=== PATIENT | male | born 1965 | race Caucasian/White ===

== ENCOUNTER → 2020-10-07 10:11 | Outpatient (BNVA) | payer BC, SELFPAY | PROVIDERS: PCP Internal Medicine; Visit Provider Hospitalist ==

== ENCOUNTER → 2021-04-08 10:50 | Outpatient (BNVA) | payer BC, SELFPAY | PROVIDERS: PCP Internal Medicine; Visit Provider Hospitalist ==

== ENCOUNTER → 2021-10-06 11:06 | Outpatient (BNVA) | payer BC, SELFPAY | PROVIDERS: PCP Internal Medicine; Visit Provider Hospitalist ==

== ENCOUNTER 2023-04-13 13:27 | Outpatient (AMB) | payer BC, SELFPAY ==
--- NOTE | 2023-04-13 13:33 | MHC.OFFVIS ---
Intake Vital Signs 04/13/23 13:34 Height 5 ft 8 in Weight 219 lb 5.759 oz BMI 33.3 BP 128/70 Blood Pressure Location Lt brachial Position Sitting Pulse 84 Pulse Source Pulse Oximeter Pulse Oximetry (%) 98 Oxygen Delivery Method Room Air Intake Visit Reasons: Obstructive sleep apnea Coding Tech Required: No Allergies tramadol [TRAMADOL] Allergy (Mild, Verified 04/13/23 13:37) NAUSEA & VOMITING HPI HPI Comments History of Present Illness Details The patient is a 57-year-old gentleman known obstructive sleep apnea. He also has a history of depression and mood disorder. He has been using CPAP without any difficulties. The CPAP therapy has been affecting beneficial. He does use it every night. We did request a download from his [employer] company, [employer]. It appears that he initially uses it but then he takes it off around 3:00 a.m. in the morning. He averages around 3 hours and 30 minutes. He was indicated on the fact that he needs to use it longer period therefore, he is going to make more of an effort to do so. When he does use it is AHI is down to 0.1. He does have an auto PAP. Otherwise he doesn't have any respiratory issues. 10/07/2020 the patient is here for pulmonary follow-up visit. Overall he has been doing okay. For the last 5 days he has had some chest congestion. He has also has some fatigue and headaches. [place] a little run down. However he is feeling better now he denies any fevers. He owns want to get tested for COVID-19 but now he is better. The patient has been using his CPAP. The CPAP therapy continues to be affecting beneficial. He has been getting supplies regularly through his [employer] company. He is wondering about getting a new CPAP. The CPAP appears to be functioning appropriately at this time. Therefore will have him come back in 6 months and reassess if he has any issues with CPAP. At that time we can discuss if he needs a new 1. If the patient develops any worsening respiratory symptoms he is to be tested for COVID-19. Can also call the office for further recommendations. 04/08/2021 the patient is here for pulmonary follow-up visit. Since we last spoke the patient had been diagnosed with COVID-19. Apparently back when I saw him he was done to develop symptoms. He did test positive in subsequently started fevers up to 104. He was having a. Ultimately he has recovered and he did get vaccinated afterwards. He been having issues with memory and memory followed as well as depression although his medications of chronic being wean down. Will follow up with the psychiatrist closely regarding those symptoms. I do not believe that those symptoms are due to his CPAP. He continues uses CPAP and is continues to be affecting beneficial. The patient is older than 5 years old. We will have him bring in during the next visit to see if we need stop it out for a new machine. Will have follow-up in 6 months and will discuss that further at that time. If however the machine stops working prior to that or if he develops any worsening respiratory symptoms he is to call our office for an earlier assessment. 10/06/2021 the patient is here for a pulmonary follow-up visit. Overall the patient has been doing well. He recovered fully from COVID-19. In the meantime he continues uses CPAP therapy with good adherence. he does use his CPAP for more than 4 hours a night. The therapy has been affecting beneficial. He is having issues with with his old machine though does not feel like it is working appropriately. Therefore, will request a replacement APAP AirSense 11. 04/13/2023 the patient is here for pulmonary follow-up visit. In regards of the his sleep apnea and he did get a new machine in the CPAP therapy has been affecting beneficial. He does use it for more than 4 hours a night. The patient does not have air view access so therefore have to request a download at this time. He has been having issues with depression this is his biggest issue. Also feels like as a having brain fog. Will have to make sure that he is doing effective CPAP therapy to make sure that that is not interfering with his mental health issues. She will talk to his psychiatrist about further additional therapies at this time. [facility] Medical History (Updated 04/13/23 @ 21:53 by Johnie Steiner MD) Insomnia BRITNI on CPAP Social History (Updated 10/06/21 @ 11:14 by CORRIE Christianson) Patient Tobacco Use Status: Never used Tobacco Review of Systems Const Reports difficulty sleeping and Denies night sweats ENT Denies change in voice, Denies mouth pain, Reports nasal congestion and Reports nasal discharge Card Denies chest pain Resp Denies chest congestion and Denies cough GI Denies abdominal pain Musc Denies no additional complaints Neuro Denies Neuro-related abnormal movements, Reports confusion and Reports memory loss Psych Denies no additional complaints, Reports confusion, Reports depression and Reports memory loss Michael/Lymph Denies easy bleeding and Denies lymphadenopathy Physical Exam Vital Signs: Last Vital Signs Pulse 84 04/13/23 13:34 BP 128/70 04/13/23 13:34 Pulse Ox 98 04/13/23 13:34 Oxygen Delivery Method Room Air 04/13/23 13:34 BMI result Body Mass Index 33.3 Const General: confusion Orientation/consciousness: confusion HEENT General nose exam: Abnormal external nose present and Nasal discharge present Chest Chest palpation & inspection: normal inspection of the chest Resp Auscultation: clear to auscultation bilaterally Cardio Rate: regular rate Rhythm: regular rhythm Heart sounds: S1 normal heart sound present and S2 normal heart sound present GI Palpation (GI): Soft to palpation and nontender Auscultation: normal bowel sounds Skin General skin exam: rashes and/or lesions noted Neuro General: confusion Assessment & Plan Assessment & Plan (1) BRITNI on CPAP: Code(s): G47.33 - Obstructive sleep apnea (adult) (pediatric); Z99.89 - Dependence on other enabling machines and devices (2) Insomnia: Code(s): G47.00 - Insomnia, unspecified Plan Continue APAP therapy. sleep hygiene consider melatonin TCA at bedtime F/U 1 year Coding Level of Care Code Est Pt Level 4 (32144) Diagnoses BRITNI on CPAP G47.33; Z99.89 Insomnia G47.00 Time Spent (min) 17
[2023-04-13 13:34] VITALS: BP 128/70; PULSE 84; O2SAT 98; BMI 33.3
== END 2023-04-13 13:56 | disposition home or self-care (01) ==
PROVIDERS: PCP Internal Medicine; Visit Provider Hospitalist
DX: G47.33 Obstructive sleep apnea (adult) (pediatric) (principal); Z99.89 Dependence on other enabling machines and devices; G47.00 Insomnia, unspecified
CPT/HCPCS: 99214

== ENCOUNTER → 2023-04-13 13:27 | Outpatient (BNVA) | payer BC, SELFPAY | PROVIDERS: PCP Internal Medicine; Visit Provider Hospitalist ==

== ENCOUNTER 2025-07-11 14:52 | Outpatient (AMB) | payer BC, SELFPAY ==
[2025-07-11 15:01] VITALS: BP 130/50; PULSE 120; O2SAT 97; BMI 35.2
--- NOTE | 2025-07-11 15:01 | MHC.OFFVIS ---
Vital Signs 07/11/25 15:01 Height 5 ft 8 in Weight 231 lb 7.766 oz BMI 35.2 BP 130/50 L Blood Pressure Location Lt brachial Position Sitting Pulse 120 H Pulse Source Pulse Oximeter Pulse Oximetry (%) 97 Oxygen Delivery Method Room Air Intake Visit Reasons: Shortness of breath Residential Plumber Required: No Allergies tramadol (TRAMADOL) Allergy (Mild, Verified 07/11/25 15:02) NAUSEA & VOMITING HPI Comments Details: The patient is a 60-year-old gentleman known obstructive sleep apnea. He also has a history of depression and mood disorder. He has been using CPAP without any difficulties. The CPAP therapy has been affecting beneficial. He does use it every night. We did request a download from his [employer] company, [employer]. It appears that he initially uses it but then he takes it off around 3:00 a.m. in the morning. He averages around 3 hours and 30 minutes. He was indicated on the fact that he needs to use it longer period therefore, he is going to make more of an effort to do so. When he does use it is AHI is down to 0.1. He does have an auto PAP. Otherwise he doesn't have any respiratory issues. 10/07/2020 the patient is here for pulmonary follow-up visit. Overall he has been doing okay. For the last 5 days he has had some chest congestion. He has also has some fatigue and headaches. [place] a little run down. However he is feeling better now he denies any fevers. He owns want to get tested for COVID-19 but now he is better. The patient has been using his CPAP. The CPAP therapy continues to be affecting beneficial. He has been getting supplies regularly through his [employer] company. He is wondering about getting a new CPAP. The CPAP appears to be functioning appropriately at this time. Therefore will have him come back in 6 months and reassess if he has any issues with CPAP. At that time we can discuss if he needs a new 1. If the patient develops any worsening respiratory symptoms he is to be tested for COVID-19. Can also call the office for further recommendations. 04/08/2021 the patient is here for pulmonary follow-up visit. Since we last spoke the patient had been diagnosed with COVID-19. Apparently back when I saw him he was done to develop symptoms. He did test positive in subsequently started fevers up to 104. He was having a. Ultimately he has recovered and he did get vaccinated afterwards. He been having issues with memory and memory followed as well as depression although his medications of chronic being wean down. Will follow up with the psychiatrist closely regarding those symptoms. I do not believe that those symptoms are due to his CPAP. He continues uses CPAP and is continues to be affecting beneficial. The patient is older than 5 years old. We will have him bring in during the next visit to see if we need stop it out for a new machine. Will have follow-up in 6 months and will discuss that further at that time. If however the machine stops working prior to that or if he develops any worsening respiratory symptoms he is to call our office for an earlier assessment. 10/06/2021 the patient is here for a pulmonary follow-up visit. Overall the patient has been doing well. He recovered fully from COVID-19. In the meantime he continues uses CPAP therapy with good adherence. he does use his CPAP for more than 4 hours a night. The therapy has been affecting beneficial. He is having issues with with his old machine though does not feel like it is working appropriately. Therefore, will request a replacement APAP AirSense . 04/13/2023 the patient is here for pulmonary follow-up visit. In regards of the his sleep apnea and he did get a new machine in the CPAP therapy has been affecting beneficial. He does use it for more than 4 hours a night. The patient does not have air view access so therefore have to request a download at this time. He has been having issues with depression this is his biggest issue. Also feels like as a having brain fog. Will have to make sure that he is doing effective CPAP therapy to make sure that that is not interfering with his mental health issues. She will talk to his psychiatrist about further additional therapies at this time. 07/11/2025 the patient is here for pulmonary follow-up visit. Overall the patient has been doing okay. He has been using CPAP every night CPAP therapy has been affecting beneficial. He does use it with the nasal mask. The patient is still complaining of brain fog. He is going to follow-up with his doctor regarding that. I will request a download from his current [employer] company to see if we need to adjust his machine. He is complaining of some vivid dreams. Most likely secondary to his medications but need to make sure that is not from inefficient CPAP therapy. From a breathing standpoint the patient is doing good denies any shortness of breath or coughing or any other concerns. From a insomnia standpoint he is still taking the nortriptyline. He has stopped taking Remeron because it was causing him to have worsening vivid dreams. [facility] Medical History (Updated 07/11/25 @ 15:18 by Johnie Steiner MD) Insomnia BRITNI on CPAP Social History Patient Tobacco Use Status: Never used Tobacco Review of Systems Const Reports difficulty sleeping and Denies night sweats ENT Denies change in voice, Denies mouth pain, Reports nasal congestion and Reports nasal discharge Card Denies chest pain Resp Denies chest congestion and Denies cough GI Denies abdominal pain Musc Denies no additional complaints Neuro Denies Neuro-related abnormal movements, Reports confusion and Reports memory loss Psych Denies no additional complaints, Reports confusion, Reports depression and Reports memory loss Michael/Lymph Denies easy bleeding and Denies lymphadenopathy Physical Exam Vital Signs: Last Vital Signs Pulse 120 H 07/11/25 15:01 BP 130/50 L 07/11/25 15:01 Pulse Ox 97 07/11/25 15:01 Oxygen Delivery Method Room Air 07/11/25 15:01 BMI result Body Mass Index 35.2 Const General: confusion Orientation/consciousness: confusion HEENT General nose exam: Abnormal external nose present and Nasal discharge present Chest Chest palpation & inspection: normal inspection of the chest Resp Auscultation: clear to auscultation bilaterally Cardio Rate: regular rate Rhythm: regular rhythm Heart sounds: S1 normal heart sound present and S2 normal heart sound present GI Palpation (GI): Soft to palpation and nontender Auscultation: normal bowel sounds Skin General skin exam: rashes and/or lesions noted Neuro General: confusion Office Procedures Flu Questionnaire Does the patient have a severe egg allergy?: No Does the patient have severe life threatening allergies?: No Does the patient have a fever or illness today?: No Has the patient ever had Guillain-[place] Syndrome?: No Has the patient ever had any past reaction to a flu shot?: No Immunizations Fluarix [id number] (PF) 45 mcg (15 mcg x 3)/0.5 mL IM syringe Performing Provider: Johnie Steiner MD Performing Location: [facility] Administered by: Alta Tamez LPN on 07/11/25 15:29 Dose Route Admin Location Dispensed Lot Number Expiration Date NDC Flight Deck Officer 0.5 mL IM Right Deltoid 0.5 mL [id number] 02/17/26 [id number] [employer] VIS Given Date VIS Provided VIS Publication Date 07/11/25 Single Vaccine 24 Eligibility Eligibility Date Funding Source Not [facility] Eligible 07/11/25 Private Assessment & Plan Assessment & Plan (1) BRITNI on CPAP: Code(s): G47.33 - Obstructive sleep apnea (adult) (pediatric); Z99.89 - Dependence on other enabling machines and devices Category: Medical (2) Insomnia: Code(s): G47.00 - Insomnia, unspecified Category: Medical Qualifiers: Insomnia type: primary Qualified Code(s): F51.01 - Primary insomnia Plan Continue APAP therapy. sleep hygiene TCA at bedtime F/U 1 year Orders: Orders Influenza [id number] Immunization 07/11/25 G47.33 - Obstructive sleep apnea (adult) (pediatric), Z99.89 - Dependence on other enabling machines and devices Coding Level of Care Code Est Pt Level 4 (17939) Diagnoses BRITNI on CPAP G47.33; Z99.89 Primary insomnia F51.01 Insomnia type: primary Time Spent (min) 17
--- OUTSIDE RECORDS SUMMARY | 2025-07-11 15:06 | XMS_ITS | Patient Health Record ---
Author Organization [facility] [address] Address [address] [place] [address] Care Team Providers Care Ux Ui Designer Name Role Phone SALVADOR CARBALLO Primary Care Provider DEMETRIAGARFIELD [phone] Allergies Allergen (clinical drug ingredient) Drug/Non Drug Allergy documented on EMR Reaction Allergy Type Onset Date Status tramadol Tramadol HCl Unknown Drug Allergy Acti ve Results Component Value Reference Range Flag Notes EKG Reviewed date:07/25/2024 12:39:01 PM Interpretation: Performing Lab: Notes/Report: ECGDiastolicBP 78 ECGDiastolicBP 78 ECGHr 84 ECGHr 83 ECGPRInterval 222 ECGPRInterval 228 ECGPWaveAxis 28 ECGPWaveAxis 30 ECGQRSDuration 86 ECGQRSDuration 86 ECGQrsWaveAxis 28 ECGQrsWaveAxis 31 ECGQTcInterval 392 ECGQTcInterval 396 ECGQTInterval 354 ECGQTInterval 352 ECGSystolicBP 142 ECGSystolicBP 142 ECGTWaveAxis 31 ECGTWaveAxis 32 RR_DiastolicBP 0 RR_DiastolicBP 0 RR_MaxRRInterval 0 RR_MaxRRInterval 0 RR_MeanHR 0 RR_MeanHR 0 RR_MeanRRInterval 0 RR_MeanRRInterval 0 RR_MinRRInterval 0 RR_MinRRInterval 0 RR_NumBeats 0 RR_NumBeats 0 RR_NumNormalBeats 0 RR_NumNormalBeats 0 RR_SystolicBP 0 RR_SystolicBP 0 EKG Reviewed date:07/25/2024 12:39:01 PM Interpretation: Performing Lab: Notes/Report: ECGDiastolicBP 78 ECGDiastolicBP 78 ECGHr 84 ECGHr 83 ECGPRInterval 222 ECGPRInterval 228 ECGPWaveAxis 28 ECGPWaveAxis 30 ECGQRSDuration 86 ECGQRSDuration 86 ECGQrsWaveAxis 28 ECGQrsWaveAxis 31 ECGQTcInterval 392 ECGQTcInterval 396 ECGQTInterval 354 ECGQTInterval 352 ECGSystolicBP 142 ECGSystolicBP 142 ECGTWaveAxis 31 ECGTWaveAxis 32 RR_DiastolicBP 0 RR_DiastolicBP 0 RR_MaxRRInterval 0 RR_MaxRRInterval 0 RR_MeanHR 0 RR_MeanHR 0 RR_MeanRRInterval 0 RR_MeanRRInterval 0 RR_MinRRInterval 0 RR_MinRRInterval 0 RR_NumBeats 0 RR_NumBeats 0 RR_NumNormalBeats 0 RR_NumNormalBeats 0 RR_SystolicBP 0 RR_SystolicBP 0 Magnesium-[id number] Reviewed date:08/06/2024 06:01:39 PM Interpretation: Performing Lab:[facility], [address] [place] [address], Phone - [phone], Director - Cj Notes/Report: Magnesium 2.2 1.6-2.3 mg/dL CBC With Differential/Platel et-[id number] Reviewed date:08/06/2024 06:01:47 PM Interpretation: Performing Lab:[facility], [address] [facility], [place], Phone - [phone], Director - Cj Notes/Report: WBC 8.2 3.4-10.8 x10E3/uL RBC 4.74 4.14-5.80 x10E6/uL Hemoglobin 14.5 13.0-17.7 g/dL Hematocrit 44.7 37.5-51.0 % MCV 94 79-97 fL MCH 30.6 26.6-33.0 pg MCHC 32.4 31.5-35.7 g/dL RDW 12.4 11.6-15.4 % Platelets 246 150-450 x10E3/uL Neutrophils 65 Not Estab. % Lymphs 24 Not Estab. % Monocytes 7 Not Estab. % Eos 3 Not Estab. % Basos 1 Not Estab. % Neutrophils (Absolute) 5.4 1.4-7.0 x10E3/uL Lymphs (Absolute) 2.0 0.7-3.1 x10E3/uL Monocytes(Absolute) 0.6 0.1-0.9 x10E3/uL Eos (Absolute) 0.2 0.0-0.4 x10E3/uL Baso (Absolute) 0.1 0.0-0.2 x10E3/uL Immature Granulocytes 0 Not Estab. % Immature Grans (Abs) 0.0 0.0-0.1 x10E3/uL Nortriptyline (Aventyl), Ser um-[id number] Reviewed date:08/06/2024 06:01:35 PM Interpretation: Performing Lab:[facility], [address] [place] [address], Phone - [phone], Director - [facility] Notes/Report: Nortriptyline (Aventyl), Serum 98 50-150 ng/mL Detection Limit = 20 . This test was developed and its performance characteristics determined by [employer]. It has not been cleared or approved by the Food and Drug Administration. [place] (Eskalith(R)), Serum -[id number] Reviewed date:08/06/2024 06:01:12 PM Interpretation: Performing Lab:[facility], [address] [place] [address], Phone - [phone], Director - [facility] Notes/Report: [place] (Eskalith(R)), Serum 0.7 0.5-1.2 mmol/L A concentration of 0.5-0.8 mmol/L is advised for long-term use; concentrations of up to 1.2 mmol/L may be necessary during acute treatment. Detection Limit = 0.1 <0.1 indicates None Detected Maritza Avendano CMP14 Default A hand-written panel/profile was received from your office. In accordance with the [facility] Ambiguous Test Code Policy dated February 2003, we have completed your order by using the closest currently or formerly recognized AMA panel. We have assigned Comprehensive Metabolic Panel (14), Test Code #[id number] to this request. If this is not the testing you wished to receive on this specimen, please contact the [employer] Client Inquiry/Technical Services Department to clarify the test order. We appreciate your business. T4 and TSH-[id number] Reviewed date:08/06/2024 06:01:03 PM Interpretation: Performing Lab:[facility], [address] [place] [address], Phone - [phone], Director - MDJodry Notes/Report: TSH 3.330 0.450-4.500 uIU/mL Thyroxine (T4) 6.1 4.5-12.0 ug/dL Calcitriol(1,25 di-OH Vit D) -[id number] Reviewed date:08/06/2024 06:01:16 PM Interpretation: Performing Lab:[facility] [place], [address] [place] [address], Phone - [phone], Director - MDJodry Notes/Report: Calcitriol(1,25 di-OH Vit D) 38.2 24.8-81.5 pg/mL Comp. Metabolic Panel (14)-[id number] Reviewed date:08/06/2024 06:01:27 PM Interpretation: Performing Lab:[facility] [place], [address] [place] [address], Phone - [phone], Director - MDJodry Notes/Report: Glucose 120 70-99 mg/dL H BUN 15 8-27 mg/dL Creatinine 1.43 0.76-1.27 mg/dL H eGFR 56 >59 mL/min/1.73 L BUN/Creatinine Ratio 10 10-24 Sodium 140 134-144 mmol/L Potassium 4.4 3.5-5.2 mmol/L Chloride 102 96-106 mmol/L Carbon Dioxide, Total 21 20-29 mmol/L Calcium 9.9 8.6-10.2 mg/dL Protein, Total 7.3 6.0-8.5 g/dL Albumin 4.6 3.9-4.9 g/dL Globulin, Total 2.7 1.5-4.5 g/dL Bilirubin, Total 0.2 0.0-1.2 mg/dL Alkaline Phosphatase 55 44-121 IU/L AST (SGOT) 26 0-40 IU/L ALT (SGPT) 41 0-44 IU/L Reason For Referral Reason Dr. Murali Valerio; I44.0 Prolonged NV Interval; R00.2 Heart Palpitations Diagnosis 1 Prolonged NV interva l (I44.0) Diagnosis 2 Heart palpitations ( R00.2) Referral Organization [facility] [address] Referring Provider First Name SALVADOR Referring Provider Last Name MURPHY Referring Provider Speciality Internal M edicine Referred Provider Specialty Cardiology General Notes [facility], (k) [phone] Clinical Notes BrandenEma townsend 09:38:15 AM > referral faxed with amy, Geneva Moreno 03/18/2025 02:57:13 PM > Seen on 12/06/24 Referral Priority Routine Reason Dr. Bliss Diagnosis 1 Heart palpitations ( R00.2) Diagnosis 2 Prolonged NV interva l (I44.0) Referral Organization [facility] [address] Referring Provider First Name GARFIELD Referring Provider Last Name SA[place] Referring Provider Speciality Preventive Medicine Referred Provider Specialty Cardiology General Notes Eugenie Dumas 024 01:46:01 PM > Referral faxed over to Murali Bliss at [facility] Referral Priority Routine Reason [facility] Diagnosis 1 Depressive disorder (F32.A) Diagnosis 2 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 ) Referral Organization [facility] [address] Referring Provider First Name GARFIELD Referring Provider Last Name [facility] [place] [facility] Referred Provider Specialty Psychiatry [facility] General Notes Eugenie Dumas 025 02:56:13 PM > Referral faxed to Dr Elia Galindo as requested per pt Referral Priority Routine Reason [facility] Diagnosis 1 Prolonged NV interva l (I44.0) Referral Organization [facility] [address] Referring Provider First Name GARFIELD Referring Provider Last Name [place] Referring Provider Speciality Preventive Medicine Referred Provider Specialty Cardiology General Notes Eugenie Dumas 025 03:01:04 PM > Referral faxed to Dr Luan Ball as requested per pt. Referral Priority Routine Medications Medication SIG (Take, Route, Frequency, Duration) Notes Start Date End Date Status Creatine Active [place] 3 Fish Oil Act andrew Losartan Potassium-HCTZ 100-12.5 MG Tablet TAKE 1 TABLET BY MOUTH ONCE DAILY Active [place] Carbonate 300 MG Tablet 1/2 tablet every AM and 2 tablets every PM Oral; Duration: 28 days Active Levothyroxine Sodium 25 MCG Tablet TAKE 1 TABLET BY MOUTH DAILY IN THE MORNING ON AN EMPTY STOMACH. Active Nortriptyline HCl 75 MG Capsule 1 capsule Oral Once a day; Duration: 28 days Active Multivitamin Adult A ctive amLODIPine Besylate 5 MG Tablet 1 tablet Orally Once a day; Duration: 30 days Active Mirtazapine 7.5 MG Tablet 2 tablets at b edtime Orally Once a day Active clonazePAM 1 MG Tablet 1 tablet Orally O nce a day Active Immunizations Vaccine Route Administration Date Status Comme nts influenza IM Intramuscular 05/21/2020 Administered influenza IM Intramuscular 06/14/2021 Administered influenza IM Intramuscular 06/30/2022 Administered influenza IM Intramuscular 08/17/2023 Administered Influenza, high dose seasonal IM Intramuscular 07/25/2018 Administered Zoster IM Intramuscular 06/14/2021 Administered Social History Tobacco Use: Social History Observation Description Date Details (start date - stop date) Never Smoker NA - NA Social History Tobacco Use: Social Info Question Answer Notes Tobacco Use/Smoking Are you a nonsmoker Section Notes: Tob: Denies Etoh: Denies Drugs: Denies Tob: Denies Etoh: Denies Drugs: Denies Tob: Denies Etoh: Denies Drugs: Denies Problems Problem Type SNOMED Code ICD Code Onset Dates Problem Status W/U Status Risk Notes Problem Essential hypertensi on (68102875) Essential (primary) hypertension (I10) Active confirmed Problem Prediabetes (200552231) Prediabetes (R73.03) Active confirmed Problem Anxiety (54692350) Anxiety (F41.9) Active confi rmed Problem Memory loss (03119950) Memory lo ss (R41.3) Active confirmed Problem Chronic kidney disea se stage 3A (271045139) Stage 3a chronic kidney disease (N18.31) Active confirmed Problem Palpitations (81927288) Heart palpitations (R00.2) Active confirmed Problem Pure hypercholesterolemia (992770545) Elevated LDL cholesterol level (E78.00) Active confirmed Problem Long-term current us e of drug therapy (927467144) [place] use (Z79.899) Active confirmed Problem First degree atrioventricular block (258803760) First degree AV block (I44.0) Active confirmed Problem Derealization (98292721) 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) Active confirmed Problem Severe major depression, single episode, without psychotic features (48351705) MDD (major depressive disorder), severe (F32.2) Active confirmed Vital Signs Heart Rate 79 /min 04/24/2025 Temperature 97.8 degrees Fahrenheit 10/08/2024 Oximetry 98 % 04/24/2025 Blood pressure diastolic 78 mm Hg 04/24/2025 Height 67 in 04/24/2025 Blood pressure systolic 132 mm Hg 04/24/2025 Weight 230.9 lbs 04/24/2025 BMI 36.16 kg/m2 04/24/2025 Encounters Encounter Location Date Provider Diagnosis [facility] [address] [facility] [address] [facility] [address] [place] [address] 07/24/2024 GARFIELD DEMETRIA Heart palpitations R00.2 ; Prolonged NV interval I44.0 ; [place] use Z79.899 and Encounter for therapeutic drug level monitoring Z51.81 [facility] [address] [facility] [address] [facility] [address] [place] [address] 08/01/2024 GARFIELD DEMETRIA Heart palpitations R00.2 ; Prolonged NV interval I44.0 ; [place] use Z79.899 and Encounter for therapeutic drug level monitoring Z51.81 [facility] [address] [facility] [address] [place] [address] 08/23/2024 GARFIELD DEMETRIA Heart palpitations R00.2 ; First degree AV block I44.0 ; Derealization F48.1 and MDD (major depressive disorder), severe F32.2 [facility] [address] [facility] [address] [facility] [address] [place] [address] 10/08/2024 GARFIELD PABLOHAM Respiratory syncytia l virus (RSV) as cause of acute bronchiolitis J21.0 and Acute cough R05.1 [facility] [address] [facility] [address] [address] 11/21/2024 GARFIELD DEMETRIA Heart palpitations R00.2 ; First degree AV block I44.0 ; Derealization F48.1 and MDD (major depressive disorder), severe F32.2 [facility] [address] [facility] [address] [address] 01/30/2025 GARFIELD DEMETRIA Heart palpitations R00.2 ; First degree AV block I44.0 ; Essential (primary) hypertension I10 ; Stage 3a chronic kidney disease N18.31 ; Elevated LDL cholesterol level E78.00 ; Prediabetes R73.03 ; Derealization F48.1 and MDD (major depressive disorder), severe F32.2 [facility] [address] [facility] [address] [facility] [address] [place] [address] 04/24/2025 GARFIELD DEMETRIA Heart palpitations R00.2 ; First degree AV block I44.0 ; Essential (primary) hypertension I10 ; Stage 3a chronic kidney disease N18.31 ; Elevated LDL cholesterol level E78.00 ; Prediabetes R73.03 ; Derealization F48.1 and MDD (major depressive disorder), severe F32.2 [facility] [address] [facility] [address] [place] [address] 07/23/2024 TALAL CARBALLO [facility] [address] [facility] [address] [place] [address] 07/24/2024 GARFIELD AUGUSTIN [facility] [address] [facility] [address] [place] [address] 07/25/2024 TALAL CARBALLO [facility] [address] [facility] [address] [place] [address] 08/23/2024 GARFIELD PABLOHAM [facility] [address] [facility] [address] [place] [address] 10/08/2024 GARFIELD SA[place]NE [facility] [address] [facility] [address] [place] [address] 10/11/2024 GARFIELD DEMETRIA [facility] [address] [place] [address] 12/09/2024 GARFIELD DEMETRIA [facility] [address] [place] [address] 03/07/2025 TALAL CARBALLO [facility] [address] [place] [address] 03/11/2025 TALAL CARBALLO [facility] [address] [facility] [address] [place] [address] 03/12/2025 TALAL CARBALLO [facility] [address] [facility] [address] [place] [address] 04/24/2025 TALAL CARBALLO Assessments Encounter Date Diagnosis (ICD Code) Assessment Notes Treatment Notes Treatment Clinical Notes Section Notes 07/24/2024 Heart palpitations (ICD-10 - R00.2) Saqib is a 59-year-old male with a PMH of HTN, prediabetes, hypothyroidism, bipolar, anxiety, treatment resistant depression that presents for evaluation of heart palpitations on and off x5 days. Reports sensation of irregular heart beat, followed by pause, after which his heart beat resumes a seemingly regular rhythm. Not exacerbated with exertion. Denies additional cardiac symptoms. No recent travel/illness. No medication changes. On exam the patient appears comfortable, no visible increased work of breathing. HR mildly tachy to 102. Auscultation reveals regular rate/rhythm, no murmurs/rubs/or gallops. EKG obtained in office reveals prolonged NV interval to 222, no ST/T wave changes -- (EKG from 01/2021 reveals NSR with normal NV interval at 192). Current differential diagnosis includes medication-induced AV block (patient currently taking nortriptyline and lithium) v. Thyroid dysfunction v. electrolyte derangement. Plan to proceed with labs including CBC, CMP, magnesium, TSH with reflex T4, serum lithium, serum amitriptyline for continued evaluation. Placed Holter monitor x 7 days with goal of capturing irregular heart rate/beats. Patient understands to keep log of cardiac events. Will fax EKG and office note to patient's psychiatrist Dr. Socorro Joseph for continued evaluation. The patient is urged to contact her within the next day to schedule follow up to assess current medications. Will also refer to cardiology given change in EKG. Patient requesting referral to Murali Bliss [place] with [facility] Strict ED protocol reviewed, patient understands to call 911/seek immediate medical attention should he develop symptoms including but not limited to chest pain, shortness of breath, difficulty breathing, unusual nausea/vomiting, confusion, syncope, etc. All questions answered to the patient's satisfaction. Patient demonstrates understanding of diagnosis and treatments discussed. Follow-up in 1 week, sooner should any questions/concerns arise. Case discussed with collaborating physician Josh Carballo who has reviewed the assessment/plan. Chart, medications, labs, and vital signs reviewed. Dictation completed with the use of [employer] voice recognition software, prone to medical misidentifications and grammatical errors. All errors are unintentional. Although the practitioner does try to identify and correct errors, some may be present. Please do not hesitate to contact the practitioner for clarification. Total time was 60 minutes spent with >50% on coordination of care and patient education. 07/24/2024 Prolonged NV interval (ICD-10 - I44.0) Saqib is a 59-year-old male with a PMH of HTN, prediabetes, hypothyroidism, bipolar, anxiety, treatment resistant depression that presents for evaluation of heart palpitations on and off x5 days. Reports sensation of irregular heart beat, followed by pause, after which his heart beat resumes a seemingly regular rhythm. Not exacerbated with exertion. Denies additional cardiac symptoms. No recent travel/illness. No medication changes. On exam the patient appears comfortable, no visible increased work of breathing. HR mildly tachy to 102. Auscultation reveals regular rate/rhythm, no murmurs/rubs/or gallops. EKG obtained in office reveals prolonged NV interval to 222, no ST/T wave changes -- (EKG from 01/2021 reveals NSR with normal NV interval at 192). Current differential diagnosis includes medication-induced AV block (patient currently taking nortriptyline and lithium) v. Thyroid dysfunction v. electrolyte derangement. Plan to proceed with labs including CBC, CMP, magnesium, TSH with reflex T4, serum lithium, serum amitriptyline for continued evaluation. Placed Holter monitor x 7 days with goal of capturing irregular heart rate/beats. Patient understands to keep log of cardiac events. Will fax EKG and office note to patient's psychiatrist Dr. Socorro Joseph for continued evaluation. The patient is urged to contact her within the next day to schedule follow up to assess current medications. Will also refer to cardiology given change in EKG. Patient requesting referral to Murali Bliss MD with [facility] Strict ED protocol reviewed, patient understands to call 911/seek immediate medical attention should he develop symptoms including but not limited to chest pain, shortness of breath, difficulty breathing, unusual nausea/vomiting, confusion, syncope, etc. All questions answered to the patient's satisfaction. Patient demonstrates understanding of diagnosis and treatments discussed. Follow-up in 1 week, sooner should any questions/concerns arise. Case discussed with collaborating physician Josh Carballo who has reviewed the assessment/plan. Chart, medications, labs, and vital signs reviewed. Dictation completed with the use of [employer] voice recognition software, prone to medical misidentifications and grammatical errors. All errors are unintentional. Although the practitioner does try to identify and correct errors, some may be present. Please do not hesitate to contact the practitioner for clarification. Total time was 60 minutes spent with >50% on coordination of care and patient education. 08/01/2024 Heart palpitations (ICD-10 - R00.2) Saqib is a 59-year-old male with a PMH of HTN, prediabetes, hypothyroidism, bipolar, anxiety, treatment resistant depression that presents for follow-up evaluation on heart palpitations. Patient initially presented to the office 07/24/24 at which time he reported sensation of irregular heart beat, followed by pause, followed by return of regular heart rhythm x 5 days. On medication review, 2 medications were identified that may be contributing to the patient's symptoms (nortriptyline and lithium) which are prescribed by the patient's psychiatrist. An EKG was performed and revealed a prolonged NV interval to 222 (up from 192 01/2021), no ST/T wave changes. Holter monitor was placed, and comprehensive labs were ordered. Office note and EKG were faxed to the patient's psychiatrist Dr. Joseph, who instructed the patient to decrease his dose of nortriptyline from 125 mg to 100 mg 07/31/2024. Referral to cardiology placed. The patient returns today reporting with persistent sensation of irregular heartbeat. Physical exam WNL. Cardiac auscultation reveals regular rate/rhythm - no murmurs, rubs, or gallops. Holter monitor was removed for rhythm analysis. Labs drawn 07/29/2024 including CBC, CMP, magnesium, TSH, vitamin D, and lithium levels within normal limits. Nortriptyline serum level not yet available for my review. The patient is encouraged to continue monitoring his symptoms. Recommending limiting strenuous activity and prioritizing water intake. Plan to review Holter report once available. Will continue to work in coordination with the patient's psychiatrist to ensure quality care. Patient is encouraged to contact Dr. Bliss's office to establish care this week. Strict ED protocol reviewed, patient understands to call 911/seek immediate medical attention should he develop symptoms including but not limited to chest pain, shortness of breath, difficulty breathing, unusual nausea/vomiting, confusion, syncope, etc. All questions answered to the patient's satisfaction. Patient demonstrates understanding of diagnosis and treatments discussed. Follow-up in 4 weeks, sooner should any questions/concerns arise. Case discussed with collaborating physician Josh Carballo who has reviewed the assessment/plan. Chart, medications, labs, and vital signs reviewed. Dictation completed with the use of [employer] voice recognition software, prone to medical misidentifications and grammatical errors. All errors are unintentional. Although the practitioner does try to identify and correct errors, some may be present. Please do not hesitate to contact the practitioner for clarification. 08/23/2024 Heart palpitations (ICD-10 - R00.2) Saqib is a 59-year-old male with a PMH of HTN, prediabetes, hypothyroidism, anxiety, treatment resistant depression that presents for follow-up evaluation on heart palpitations. Patient initially presented to the office 07/24/24 at which time he reported sensation of irregular heart beat, followed by pause, followed by return of regular heart rhythm x 5 days. On medication review, 2 medications were identified that may be contributing to the patient's symptoms (nortriptyline and lithium) which are prescribed by the patient's psychiatrist. An EKG was performed and revealed a prolonged NV interval to 222 (up from 192 01/2021), no ST/T wave changes. Comprehensive labs and serum amitriptyline/lithiu m levels WNL. Holter monitor was placed x1 week. Holter monitor report reviewed. Predominant rhythm: NSR. There are also incidences of first-degree AV block, PACs, and PVCs. Patient reports since his dose of nortriptyline was decreased from 125 to 100 mg the frequency of the heart palpitations has decreased significantly. Continues to occasionally have sensation of skipped beats. Denies additional cardiac symptoms. Physical exam without acute findings. Cardiac auscultation reveals regular rate/rhythm. No audible murmurs, rubs, or gallops. Patient requesting referral to Dr. Ball, referral placed. Will also send most recent office note, Holter report, and EKG with referral. Patient is encouraged to continue monitoring his symptoms. Strict ED protocol reviewed, patient understands to call 911/seek immediate medical attention should he develop symptoms including but not limited to chest pain, shortness of breath, difficulty breathing, unusual nausea/vomiting, confusion, syncope, etc. #MDD/derealization: Patient with history of treatment refractory depression. Follows with psychiatrist Dr. Joseph once every 6 weeks. Continues to take nortriptyline 100 mg daily. Additionally reports lithium regimen has been changed due to kidney dysfunction and recent CMP. Currently taking 150 mg every morning and 600 mg every evening. Patient has tried and failed many adjunctive treatment options for his symptoms of depression/derealiza tion including electroshock therapy and IV ketamine infusions. Seeking additional evaluation, requesting referral to Dr. Galindo, referral provided. All questions answered to the patient's satisfaction. Patient demonstrates understanding of diagnosis and treatments discussed. Follow-up in 8 weeks, sooner should any questions/concerns arise. Case discussed with collaborating physician Josh Carballo who has reviewed the assessment/plan. Chart, medications, labs, and vital signs reviewed. Dictation completed with the use of [employer] voice recognition software, prone to medical misidentifications and grammatical errors. All errors are unintentional. Although the practitioner does try to identify and correct errors, some may be present. Please do not hesitate to contact the practitioner for clarification. Total time was 60 minutes spent with >50% on coordination of care and patient education. 08/23/2024 First degree AV block (ICD-10 - I44.0) Saqib is a 59-year-old male with a PMH of HTN, prediabetes, hypothyroidism, anxiety, treatment resistant depression that presents for follow-up evaluation on heart palpitations. Patient initially presented to the office 07/24/24 at which time he reported sensation of irregular heart beat, followed by pause, followed by return of regular heart rhythm x 5 days. On medication review, 2 medications were identified that may be contributing to the patient's symptoms (nortriptyline and lithium) which are prescribed by the patient's psychiatrist. An EKG was performed and revealed a prolonged NV interval to 222 (up from 192 01/2021), no ST/T wave changes. Comprehensive labs and serum amitriptyline/lithiu m levels WNL. Holter monitor was placed x1 week. Holter monitor report reviewed. Predominant rhythm: NSR. There are also incidences of first-degree AV block, PACs, and PVCs. Patient reports since his dose of nortriptyline was decreased from 125 to 100 mg the frequency of the heart palpitations has decreased significantly. Continues to occasionally have sensation of skipped beats. Denies additional cardiac symptoms. Physical exam without acute findings. Cardiac auscultation reveals regular rate/rhythm. No audible murmurs, rubs, or gallops. Patient requesting referral to Dr. Ball, referral placed. Will also send most recent office note, Holter report, and EKG with referral. Patient is encouraged to continue monitoring his symptoms. Strict ED protocol reviewed, patient understands to call 911/seek immediate medical attention should he develop symptoms including but not limited to chest pain, shortness of breath, difficulty breathing, unusual nausea/vomiting, confusion, syncope, etc. #MDD/derealization: Patient with history of treatment refractory depression. Follows with psychiatrist Dr. Joseph once every 6 weeks. Continues to take nortriptyline 100 mg daily. Additionally reports lithium regimen has been changed due to kidney dysfunction and recent CMP. Currently taking 150 mg every morning and 600 mg every evening. Patient has tried and failed many adjunctive treatment options for his symptoms of depression/derealiza tion including electroshock therapy and IV ketamine infusions. Seeking additional evaluation, requesting referral to Dr. Galindo, referral provided. All questions answered to the patient's satisfaction. Patient demonstrates understanding of diagnosis and treatments discussed. Follow-up in 8 weeks, sooner should any questions/concerns arise. Case discussed with collaborating physician Josh Carballo who has reviewed the assessment/plan. Chart, medications, labs, and vital signs reviewed. Dictation completed with the use of [employer] voice recognition software, prone to medical misidentifications and grammatical errors. All errors are unintentional. Although the practitioner does try to identify and correct errors, some may be present. Please do not hesitate to contact the practitioner for clarification. Total time was 60 minutes spent with >50% on coordination of care and patient education. 10/08/2024 Acute cough (ICD-10 - R05.1) Saqib is a 59-year-old male with a PMH of HTN, prediabetes, hypothyroidism, bipolar, anxiety, treatment resistant depression that presents for evaluation of cold-like symptoms including productive cough, nasal congestion, and mild SOB x 2 days. On presentation, patient is vitally stable. Exam reveals coarse breath sounds heard in the bilateral upper lobes, cleared with coughing. Exam otherwise WNL. He does cough infrequently throughout the encounter. Viral swab positive for RSV. Discussed symptomatic treatment with the patient. Patient is encouraged to rest, hydrate and use OTC treatment such as Tylenol or decongestants as needed. Given mild SOB will prescribe 5-day prednisone burst. He is encouraged to follow-up with should symptoms not improve despite treatment. He understands to seek immediate medical attention should he develop any difficulty breathing. All questions answered to the patient's satisfaction. Patient demonstrates understanding of diagnosis and treatments discussed. Follow-up at next scheduled appointment, sooner should any questions/concerns arise. Case discussed with collaborating physician Josh Carballo who has reviewed the assessment/plan. Chart, medications, labs, and vital signs reviewed. Dictation completed with the use of [employer] voice recognition software, prone to medical misidentifications and grammatical errors. All errors are unintentional. Although the practitioner does try to identify and correct errors, some may be present. Please do not hesitate to contact the practitioner for clarification. 10/08/2024 Respiratory syncytial virus (RSV) as cause of acute bronchiolitis (ICD-10 - J21.0) Saqib is a 59-year-old male with a PMH of HTN, prediabetes, hypothyroidism, bipolar, anxiety, treatment resistant depression that presents for evaluation of cold-like symptoms including productive cough, nasal congestion, and mild SOB x 2 days. On presentation, patient is vitally stable. Exam reveals coarse breath sounds heard in the bilateral upper lobes, cleared with coughing. Exam otherwise WNL. He does cough infrequently throughout the encounter. Viral swab positive for RSV. Discussed symptomatic treatment with the patient. Patient is encouraged to rest, hydrate and use OTC treatment such as Tylenol or decongestants as needed. Given mild SOB will prescribe 5-day prednisone burst. He is encouraged to follow-up with should symptoms not improve despite treatment. He understands to seek immediate medical attention should he develop any difficulty breathing. All questions answered to the patient's satisfaction. Patient demonstrates understanding of diagnosis and treatments discussed. Follow-up at next scheduled appointment, sooner should any questions/concerns arise. Case discussed with collaborating physician Josh Carballo who has reviewed the assessment/plan. Chart, medications, labs, and vital signs reviewed. Dictation completed with the use of [employer] voice recognition software, prone to medical misidentifications and grammatical errors. All errors are unintentional. Although the practitioner does try to identify and correct errors, some may be present. Please do not hesitate to contact the practitioner for clarification. 11/21/2024 Heart palpitations (ICD-10 - R00.2) Saqib is a 59-year-old male with a PMH of HTN, prediabetes, hypothyroidism, anxiety, treatment resistant depression that presents for follow-up. #Heart palpitations: Patient previously being followed for evaluation of irregular heartbeat. EKG with evidence of prolonged NV interval. Holter monitor with evidence of first-degree AV block, PACs, PVCs. Due to these findings, patient's dose of nortriptyline was decreased -currently taking 100 mg with decreased frequency of heart palpitations. Patient continues to deny additional cardiac symptoms. He is encouraged to continue monitoring his symptoms. He understands to seek immediate medical attention should he develop symptoms including but not limited to chest pain, persistent heart palpitation, difficulty breathing, confusion, weakness, etc. #MDD/derealization: Patient with history of treatment refractory depression - continues to experience symptoms of derealization, major depression, and brain fog. Denies SI/HI, panic attacks, jeevan, or AVH. Follows with psychiatrist Dr. Joseph once every 6 weeks. Currently on regimen of nortriptyline 100 mg daily and lithium 150 mg every morning grams every evening. Has tried/failed adjunct of treatment values including electroshock therapy and IV ketamine infusions. He states he has difficulties with his memory however can recall details about previous depressive treatments from 10+ years ago. He is A/O x 3. Mental status is consistent with his baseline. Discussed that from a primary care perspective, the goal would be to rule out underlying medical etiologies for his symptoms. Most recent labs including CBC, CMP, thyroid function MND, lithium, nortriptyline levels WNL. Per review of [facility] of the brain without contrast 03/12/2020 without evidence of acute/subacute infarction, hemorrhage, or mass. There was however a few scattered foci of T2 signal in the cerebral white matter likely related to minor chronic microvascular ischemic damage. It also appears the patient was referred to neurology in 2021 at which time it was decided by Chad Quezada MD to not offer an appointment due to the patient's young age and many medical/psychiatric issues that can impact memory. Could consider additional imaging of the brain, patient does not feel this is necessary at this time. Recommending he follow up with Dr. Joseph as scheduled 11/22/24. Given the lack of symptom improvement on his current regimen, he is encouraged to discuss options for alternatives with that provider. Also provided information for [email or web address] and [email or web address] should the patient like to establish with therapist or alternative psychiatric provider. He is also encouraged to call the office of Dr. Galindo to f/u on the previous referral. All questions answered to the patient's satisfaction. Patient demonstrates understanding of diagnosis and treatments discussed. Follow-up in 8 weeks, sooner should any questions/concerns arise. Case discussed with collaborating physician Josh Carballo who has reviewed the assessment/plan. Chart, medications, labs, and vital signs reviewed. Dictation completed with the use of [employer] voice recognition software, prone to medical misidentifications and grammatical errors. All errors are unintentional. Although the practitioner does try to identify and correct errors, some may be present. Please do not hesitate to contact the practitioner for clarification. Total time was 60 minutes spent with >50% on coordination of care and patient education. 01/30/2025 Heart palpitations (ICD-10 - R00.2) Saqib is a 59-year-old male with a PMH of treatment resistant MDD, HTN, first-degree AV block, HLD, prediabetes, hypothyroidism, CKD that presents for follow-up appointment. #Heart palpitations: Patient previously being followed for evaluation of irregular heartbeat. EKG with evidence of prolonged NV interval. Holter monitor with evidence of first-degree AV block, PACs, PVCs. Seen by Selina Rivero MD with [facility] cardiology 12/06/2024 at which time baseline labs were ordered which were unremarkable. Scheduling for echocardiogram pending. Repeat Holter monitor x 3 days was placed, awaiting report for review. He is encouraged to continue monitoring symptoms. ED protocol reviewed. Plan to follow-up with cardiology in 6 months a scheduled. #HTN: BP in office 126/74. Continue losartan/HCTZ 100/12.5 mg daily and amlodipine 5 mg daily. #CKD: Labs drawn 12/21/2024 revealed BUN/creatinine 19/1.42, consistent with patient's baseline. #HLD: Lipid panel drawn 12/21/2024 reveals mildly elevated total cholesterol at 116, otherwise WNL. Patient is educated that lifestyle changes including increasing physical activity and dietary changes can aid in decreasing cholesterol levels. Recommending a diet rich in fruits, vegetables, fiber, and healthy fats such as those found in fish and nuts. Limit sugar, processed foods, fried foods, alcohol, red meat, and unhealthy fats such as trans fats and saturated fat. #Prediabetes: A1c 12/21/2024 prediabetic at 5.7%. He understands the importance of above lifestyle recommendations. #Hypothyroidism: TSH drawn 12/21/2024 WNL at 2.49. Continue levothyroxine 25 mcg once daily. #MDD/derealization: Patient with history of treatment refractory depression - continues to experience symptoms of derealization, major depression, and brain fog. Denies SI/HI, panic attacks, jeevan, or AVH. Follows with psychiatrist Dr. Joseph once every 6 weeks. Currently on regimen of nortriptyline 75 mg daily, mirtazapine 7.5 mg QD, lithium 150 mg QAM and 600mg QHS. Has tried/failed adjunct of treatment values including electroshock therapy and IV ketamine infusions. A/O x 3 - mental status is consistent with his baseline. He is encouraged to follow-up with psychiatry 01/31/2025 as scheduled. Discussed possibility of [employer] testing, he will review this option with the psychiatrist at time of appointment tomorrow. All questions answered to the patient's satisfaction. Patient demonstrates understanding of diagnosis and treatments discussed. Follow-up in 8 weeks, sooner should any questions/concerns arise. Case discussed with collaborating physician Josh Carballo who has reviewed the assessment/plan. Chart, medications, labs, and vital signs reviewed. Dictation completed with the use of [employer] voice recognition software, prone to medical misidentifications and grammatical errors. All errors are unintentional. Although the practitioner does try to identify and correct errors, some may be present. Please do not hesitate to contact the practitioner for clarification. Total time was 30 minutes spent with >50% on coordination of care and patient education. 01/30/2025 First degree AV block (ICD-10 - I44.0) Saqib is a 59-year-old male with a PMH of treatment resistant MDD, HTN, first-degree AV block, HLD, prediabetes, hypothyroidism, CKD that presents for follow-up appointment. #Heart palpitations: Patient previously being followed for evaluation of irregular heartbeat. EKG with evidence of prolonged NV interval. Holter monitor with evidence of first-degree AV block, PACs, PVCs. Seen by Selina Rivero MD with [facility] cardiology 12/06/2024 at which time baseline labs were ordered which were unremarkable. Scheduling for echocardiogram pending. Repeat Holter monitor x 3 days was placed, awaiting report for review. He is encouraged to continue monitoring symptoms. ED protocol reviewed. Plan to follow-up with cardiology in 6 months a scheduled. #HTN: BP in office 126/74. Continue losartan/HCTZ 100/12.5 mg daily and amlodipine 5 mg daily. #CKD: Labs drawn 12/21/2024 revealed BUN/creatinine 19/1.42, consistent with patient's baseline. #HLD: Lipid panel drawn 12/21/2024 reveals mildly elevated total cholesterol at 116, otherwise WNL. Patient is educated that lifestyle changes including increasing physical activity and dietary changes can aid in decreasing cholesterol levels. Recommending a diet rich in fruits, vegetables, fiber, and healthy fats such as those found in fish and nuts. Limit sugar, processed foods, fried foods, alcohol, red meat, and unhealthy fats such as trans fats and saturated fat. #Prediabetes: A1c 12/21/2024 prediabetic at 5.7%. He understands the importance of above lifestyle recommendations. #Hypothyroidism: TSH drawn 12/21/2024 WNL at 2.49. Continue levothyroxine 25 mcg once daily. #MDD/derealization: Patient with history of treatment refractory depression - continues to experience symptoms of derealization, major depression, and brain fog. Denies SI/HI, panic attacks, jeevan, or AVH. Follows with psychiatrist Dr. Joseph once every 6 weeks. Currently on regimen of nortriptyline 75 mg daily, mirtazapine 7.5 mg QD, lithium 150 mg QAM and 600mg QHS. Has tried/failed adjunct of treatment values including electroshock therapy and IV ketamine infusions. A/O x 3 - mental status is consistent with his baseline. He is encouraged to follow-up with psychiatry 01/31/2025 as scheduled. Discussed possibility of [employer] testing, he will review this option with the psychiatrist at time of appointment tomorrow. All questions answered to the patient's satisfaction. Patient demonstrates understanding of diagnosis and treatments discussed. Follow-up in 8 weeks, sooner should any questions/concerns arise. Case discussed with collaborating physician Josh Carballo who has reviewed the assessment/plan. Chart, medications, labs, and vital signs reviewed. Dictation completed with the use of [employer] voice recognition software, prone to medical misidentifications and grammatical errors. All errors are unintentional. Although the practitioner does try to identify and correct errors, some may be present. Please do not hesitate to contact the practitioner for clarification. Total time was 30 minutes spent with >50% on coordination of care and patient education. 04/24/2025 Heart palpitations (ICD-10 - R00.2) Saqib is a 59-year-old male with a PMH of treatment resistant MDD, HTN, first-degree AV block, HLD, prediabetes, hypothyroidism, CKD that presents for follow-up appointment. #Heart palpitations: Patient previously being followed for evaluation of irregular heartbeat. EKG with evidence of prolonged NV interval. Holter monitor with evidence of first-degree AV block, PACs, PVCs. Seen by Selina Rivero MD with [facility] cardiology 12/06/2024 at which time baseline labs were ordered which were unremarkable. Repeat Holter monitor x 3 days was placed and the patient and echo was ordered. He is encouraged to continue monitoring symptoms. ED protocol reviewed. Plan to follow-up with cardiology in May as scheduled. #HTN: BP in office 132/78. Continue losartan/HCTZ 100/12.5 mg daily and amlodipine 5 mg daily. #CKD: Labs drawn 12/21/2024 revealed BUN/creatinine 19/1.42, consistent with patient's baseline. #HLD: Lipid panel drawn 12/21/2024 reveals mildly elevated total cholesterol at 116, otherwise WNL. Patient is encouraged to continue to maintain lifestyle changes and fish oil supplement. Plan to recheck lipid panel at time of physical. #Prediabetes: A1c 12/21/2024 prediabetic at 5.7%. He understands the importance of above lifestyle recommendations. #Hypothyroidism: Continue levothyroxine 25 mcg once daily. #MDD/derealization: Patient with history of treatment refractory depression - continues to experience symptoms of derealization, major depression, and brain fog., Follows with psychiatrist Dr. Joseph once every 6 weeks. Currently on regimen of nortriptyline 75 mg daily, mirtazapine 7.5 mg QD, lithium 150 mg QAM and 600mg QHS. Has tried/failed adjunct of treatment values including electroshock therapy and IV ketamine infusions. A/O x 3 - mental status is consistent with his baseline. He is encouraged to follow-up with psychiatry 25 as scheduled. All questions answered to the patient's satisfaction. Patient demonstrates understanding of diagnosis and treatments discussed. Follow-up in 8 weeks, sooner should any questions/concerns arise. Case discussed with collaborating physician Josh Carballo who has reviewed the assessment/plan. Chart, medications, labs, and vital signs reviewed. Dictation completed with the use of [employer] voice recognition software, prone to medical misidentifications and grammatical errors. All errors are unintentional. Although the practitioner does try to identify and correct errors, some may be present. Please do not hesitate to contact the practitioner for clarification. Total time was 30 minutes spent with >50% on coordination of care and patient education. 04/24/2025 First degree AV block (ICD-10 - I44.0) Saqib is a 59-year-old male with a PMH of treatment resistant MDD, HTN, first-degree AV block, HLD, prediabetes, hypothyroidism, CKD that presents for follow-up appointment. #Heart palpitations: Patient previously being followed for evaluation of irregular heartbeat. EKG with evidence of prolonged NV interval. Holter monitor with evidence of first-degree AV block, PACs, PVCs. Seen by Selina Rivero MD with [facility] cardiology 12/06/2024 at which time baseline labs were ordered which were unremarkable. Repeat Holter monitor x 3 days was placed and the patient and echo was ordered. He is encouraged to continue monitoring symptoms. ED protocol reviewed. Plan to follow-up with cardiology in May as scheduled. #HTN: BP in office 132/78. Continue losartan/HCTZ 100/12.5 mg daily and amlodipine 5 mg daily. #CKD: Labs drawn 12/21/2024 revealed BUN/creatinine 19/1.42, consistent with patient's baseline. #HLD: Lipid panel drawn 12/21/2024 reveals mildly elevated total cholesterol at 116, otherwise WNL. Patient is encouraged to continue to maintain lifestyle changes and fish oil supplement. Plan to recheck lipid panel at time of physical. #Prediabetes: A1c 12/21/2024 prediabetic at 5.7%. He understands the importance of above lifestyle recommendations. #Hypothyroidism: Continue levothyroxine 25 mcg once daily. #MDD/derealization: Patient with history of treatment refractory depression - continues to experience symptoms of derealization, major depression, and brain fog., Follows with psychiatrist Dr. Joseph once every 6 weeks. Currently on regimen of nortriptyline 75 mg daily, mirtazapine 7.5 mg QD, lithium 150 mg QAM and 600mg QHS. Has tried/failed adjunct of treatment values including electroshock therapy and IV ketamine infusions. A/O x 3 - mental status is consistent with his baseline. He is encouraged to follow-up with psychiatry as scheduled. All questions answered to the patient's satisfaction. Patient demonstrates understanding of diagnosis and treatments discussed. Follow-up in 8 weeks, sooner should any questions/concerns arise. Case discussed with collaborating physician Josh Carballo who has reviewed the assessment/plan. Chart, medications, labs, and vital signs reviewed. Dictation completed with the use of [employer] voice recognition software, prone to medical misidentifications and grammatical errors. All errors are unintentional. Although the practitioner does try to identify and correct errors, some may be present. Please do not hesitate to contact the practitioner for clarification. Total time was 30 minutes spent with >50% on coordination of care and patient education. 04/24/2025 Essential (primary) hypertension (ICD-10 - I10) Saqib is a 59-year-old male with a PMH of treatment resistant MDD, HTN, first-degree AV block, HLD, prediabetes, hypothyroidism, CKD that presents for follow-up appointment. #Heart palpitations: Patient previously being followed for evaluation of irregular heartbeat. EKG with evidence of prolonged NV interval. Holter monitor with evidence of first-degree AV block, PACs, PVCs. Seen by Selina Rivero MD with [facility] cardiology 12/06/2024 at which time baseline labs were ordered which were unremarkable. Repeat Holter monitor x 3 days was placed and the patient and echo was ordered. He is encouraged to continue monitoring symptoms. ED protocol reviewed. Plan to follow-up with cardiology in May as scheduled. #HTN: BP in office 132/78. Continue losartan/HCTZ 100/12.5 mg daily and amlodipine 5 mg daily. #CKD: Labs drawn 12/21/2024 revealed BUN/creatinine 19/1.42, consistent with patient's baseline. #HLD: Lipid panel drawn 12/21/2024 reveals mildly elevated total cholesterol at 116, otherwise WNL. Patient is encouraged to continue to maintain lifestyle changes and fish oil supplement. Plan to recheck lipid panel at time of physical. #Prediabetes: A1c 12/21/2024 prediabetic at 5.7%. He understands the importance of above lifestyle recommendations. #Hypothyroidism: Continue levothyroxine 25 mcg once daily. #MDD/derealization: Patient with history of treatment refractory depression - continues to experience symptoms of derealization, major depression, and brain fog., Follows with psychiatrist Dr. Joseph once every 6 weeks. Currently on regimen of nortriptyline 75 mg daily, mirtazapine 7.5 mg QD, lithium 150 mg QAM and 600mg QHS. Has tried/failed adjunct of treatment values including electroshock therapy and IV ketamine infusions. A/O x 3 - mental status is consistent with his baseline. He is encouraged to follow-up with psychiatry [id number] as scheduled. All questions answered to the patient's satisfaction. Patient demonstrates understanding of diagnosis and treatments discussed. Follow-up in 8 weeks, sooner should any questions/concerns arise. Case discussed with collaborating physician Josh Carballo who has reviewed the assessment/plan. Chart, medications, labs, and vital signs reviewed. Dictation completed with the use of [employer] voice recognition software, prone to medical misidentifications and grammatical errors. All errors are unintentional. Although the practitioner does try to identify and correct errors, some may be present. Please do not hesitate to contact the practitioner for clarification. Total time was 30 minutes spent with >50% on coordination of care and patient education. 11/21/2024 First degree AV block (ICD-10 - I44.0) Saqib is a 59-year-old male with a PMH of HTN, prediabetes, hypothyroidism, anxiety, treatment resistant depression that presents for follow-up. #Heart palpitations: Patient previously being followed for evaluation of irregular heartbeat. EKG with evidence of prolonged NV interval. Holter monitor with evidence of first-degree AV block, PACs, PVCs. Due to these findings, patient's dose of nortriptyline was decreased -currently taking 100 mg with decreased frequency of heart palpitations. Patient continues to deny additional cardiac symptoms. He is encouraged to continue monitoring his symptoms. He understands to seek immediate medical attention should he develop symptoms including but not limited to chest pain, persistent heart palpitation, difficulty breathing, confusion, weakness, etc. #MDD/derealization: Patient with history of treatment refractory depression - continues to experience symptoms of derealization, major depression, and brain fog. Denies SI/HI, panic attacks, jeevan, or AVH. Follows with psychiatrist Dr. Joseph once every 6 weeks. Currently on regimen of nortriptyline 100 mg daily and lithium 150 mg every morning grams every evening. Has tried/failed adjunct of treatment values including electroshock therapy and IV ketamine infusions. He states he has difficulties with his memory however can recall details about previous depressive treatments from 10+ years ago. He is A/O x 3. Mental status is consistent with his baseline. Discussed that from a primary care perspective, the goal would be to rule out underlying medical etiologies for his symptoms. Most recent labs including CBC, CMP, thyroid function MND, lithium, nortriptyline levels WNL. Per review of [facility] MRI of the brain without contrast 03/12/2020 without evidence of acute/subacute infarction, hemorrhage, or mass. There was however a few scattered foci of T2 signal in the cerebral white matter likely related to minor chronic microvascular ischemic damage. It also appears the patient was referred to neurology in 2021 at which time it was decided by Chad Quezada MD to not offer an appointment due to the patient's young age and many medical/psychiatric issues that can impact memory. Could consider additional imaging of the brain, patient does not feel this is necessary at this time. Recommending he follow up with Dr. Joseph as scheduled 11/22/24. Given the lack of symptom improvement on his current regimen, he is encouraged to discuss options for alternatives with that provider. Also provided information for [email or web address] and [email or web address] should the patient like to establish with therapist or alternative psychiatric provider. He is also encouraged to call the office of Dr. Galindo to f/u on the previous referral. All questions answered to the patient's satisfaction. Patient demonstrates understanding of diagnosis and treatments discussed. Follow-up in 8 weeks, sooner should any questions/concerns arise. Case discussed with collaborating physician Josh Carballo who has reviewed the assessment/plan. Chart, medications, labs, and vital signs reviewed. Dictation completed with the use of [employer] voice recognition software, prone to medical misidentifications and grammatical errors. All errors are unintentional. Although the practitioner does try to identify and correct errors, some may be present. Please do not hesitate to contact the practitioner for clarification. Total time was 60 minutes spent with >50% on coordination of care and patient education. 01/30/2025 Essential (primary) hypertension (ICD-10 - I10) Saqib is a 59-year-old male with a PMH of treatment resistant MDD, HTN, first-degree AV block, HLD, prediabetes, hypothyroidism, CKD that presents for follow-up appointment. #Heart palpitations: Patient previously being followed for evaluation of irregular heartbeat. EKG with evidence of prolonged NV interval. Holter monitor with evidence of first-degree AV block, PACs, PVCs. Seen by Selina Rivero MD with [facility] cardiology 12/06/2024 at which time baseline labs were ordered which were unremarkable. Scheduling for echocardiogram pending. Repeat Holter monitor x 3 days was placed, awaiting report for review. He is encouraged to continue monitoring symptoms. ED protocol reviewed. Plan to follow-up with cardiology in 6 months a scheduled. #HTN: BP in office 126/74. Continue losartan/HCTZ 100/12.5 mg daily and amlodipine 5 mg daily. #CKD: Labs drawn 12/21/2024 revealed BUN/creatinine 19/1.42, consistent with patient's baseline. #HLD: Lipid panel drawn 12/21/2024 reveals mildly elevated total cholesterol at 116, otherwise WNL. Patient is educated that lifestyle changes including increasing physical activity and dietary changes can aid in decreasing cholesterol levels. Recommending a diet rich in fruits, vegetables, fiber, and healthy fats such as those found in fish and nuts. Limit sugar, processed foods, fried foods, alcohol, red meat, and unhealthy fats such as trans fats and saturated fat. #Prediabetes: A1c 12/21/2024 prediabetic at 5.7%. He understands the importance of above lifestyle recommendations. #Hypothyroidism: TSH drawn 12/21/2024 WNL at 2.49. Continue levothyroxine 25 mcg once daily. #MDD/derealization: Patient with history of treatment refractory depression - continues to experience symptoms of derealization, major depression, and brain fog. Denies SI/HI, panic attacks, jeevan, or AVH. Follows with psychiatrist Dr. Joseph once every 6 weeks. Currently on regimen of nortriptyline 75 mg daily, mirtazapine 7.5 mg QD, lithium 150 mg QAM and 600mg QHS. Has tried/failed adjunct of treatment values including electroshock therapy and IV ketamine infusions. A/O x 3 - mental status is consistent with his baseline. He is encouraged to follow-up with psychiatry 01/31/2025 as scheduled. Discussed possibility of [employer] testing, he will review this option with the psychiatrist at time of appointment tomorrow. All questions answered to the patient's satisfaction. Patient demonstrates understanding of diagnosis and treatments discussed. Follow-up in 8 weeks, sooner should any questions/concerns arise. Case discussed with collaborating physician Josh Carballo who has reviewed the assessment/plan. Chart, medications, labs, and vital signs reviewed. Dictation completed with the use of [employer] voice recognition software, prone to medical misidentifications and grammatical errors. All errors are unintentional. Although the practitioner does try to identify and correct errors, some may be present. Please do not hesitate to contact the practitioner for clarification. Total time was 30 minutes spent with >50% on coordination of care and patient education. 08/01/2024 Prolonged NV interval (ICD-10 - I44.0) Saqib is a 59-year-old male with a PMH of HTN, prediabetes, hypothyroidism, bipolar, anxiety, treatment resistant depression that presents for follow-up evaluation on heart palpitations. Patient initially presented to the office 07/24/24 at which time he reported sensation of irregular heart beat, followed by pause, followed by return of regular heart rhythm x 5 days. On medication review, 2 medications were identified that may be contributing to the patient's symptoms (nortriptyline and lithium) which are prescribed by the patient's psychiatrist. An EKG was performed and revealed a prolonged NV interval to 222 (up from 192 01/2021), no ST/T wave changes. Holter monitor was placed, and comprehensive labs were ordered. Office note and EKG were faxed to the patient's psychiatrist Dr. Joseph, who instructed the patient to decrease his dose of nortriptyline from 125 mg to 100 mg 07/31/2024. Referral to cardiology placed. The patient returns today reporting with persistent sensation of irregular heartbeat. Physical exam WNL. Cardiac auscultation reveals regular rate/rhythm - no murmurs, rubs, or gallops. Holter monitor was removed for rhythm analysis. Labs drawn 07/29/2024 including CBC, CMP, magnesium, TSH, vitamin D, and lithium levels within normal limits. Nortriptyline serum level not yet available for my review. The patient is encouraged to continue monitoring his symptoms. Recommending limiting strenuous activity and prioritizing water intake. Plan to review Holter report once available. Will continue to work in coordination with the patient's psychiatrist to ensure quality care. Patient is encouraged to contact Dr. Bliss's office to establish care this week. Strict ED protocol reviewed, patient understands to call 911/seek immediate medical attention should he develop symptoms including but not limited to chest pain, shortness of breath, difficulty breathing, unusual nausea/vomiting, confusion, syncope, etc. All questions answered to the patient's satisfaction. Patient demonstrates understanding of diagnosis and treatments discussed. Follow-up in 4 weeks, sooner should any questions/concerns arise. Case discussed with collaborating physician Josh Carballo who has reviewed the assessment/plan. Chart, medications, labs, and vital signs reviewed. Dictation completed with the use of [employer] voice recognition software, prone to medical misidentifications and grammatical errors. All errors are unintentional. Although the practitioner does try to identify and correct errors, some may be present. Please do not hesitate to contact the practitioner for clarification. 08/23/2024 Derealization (ICD-10 - F48.1) Saqib is a 59-year-old male with a PMH of HTN, prediabetes, hypothyroidism, anxiety, treatment resistant depression that presents for follow-up evaluation on heart palpitations. Patient initially presented to the office 07/24/24 at which time he reported sensation of irregular heart beat, followed by pause, followed by return of regular heart rhythm x 5 days. On medication review, 2 medications were identified that may be contributing to the patient's symptoms (nortriptyline and lithium) which are prescribed by the patient's psychiatrist. An EKG was performed and revealed a prolonged NV interval to 222 (up from 192 01/2021), no ST/T wave changes. Comprehensive labs and serum amitriptyline/lithiu m levels WNL. Holter monitor was placed x1 week. Holter monitor report reviewed. Predominant rhythm: NSR. There are also incidences of first-degree AV block, PACs, and PVCs. Patient reports since his dose of nortriptyline was decreased from 125 to 100 mg the frequency of the heart palpitations has decreased significantly. Continues to occasionally have sensation of skipped beats. Denies additional cardiac symptoms. Physical exam without acute findings. Cardiac auscultation reveals regular rate/rhythm. No audible murmurs, rubs, or gallops. Patient requesting referral to Dr. Ball, referral placed. Will also send most recent office note, Holter report, and EKG with referral. Patient is encouraged to continue monitoring his symptoms. Strict ED protocol reviewed, patient understands to call 911/seek immediate medical attention should he develop symptoms including but not limited to chest pain, shortness of breath, difficulty breathing, unusual nausea/vomiting, confusion, syncope, etc. #MDD/derealization: Patient with history of treatment refractory depression. Follows with psychiatrist Dr. Joseph once every 6 weeks. Continues to take nortriptyline 100 mg daily. Additionally reports lithium regimen has been changed due to kidney dysfunction and recent CMP. Currently taking 150 mg every morning and 600 mg every evening. Patient has tried and failed many adjunctive treatment options for his symptoms of depression/derealiza tion including electroshock therapy and IV ketamine infusions. Seeking additional evaluation, requesting referral to Dr. Galindo, referral provided. All questions answered to the patient's satisfaction. Patient demonstrates understanding of diagnosis and treatments discussed. Follow-up in 8 weeks, sooner should any questions/concerns arise. Case discussed with collaborating physician Josh Carballo who has reviewed the assessment/plan. Chart, medications, labs, and vital signs reviewed. Dictation completed with the use of [employer] voice recognition software, prone to medical misidentifications and grammatical errors. All errors are unintentional. Although the practitioner does try to identify and correct errors, some may be present. Please do not hesitate to contact the practitioner for clarification. Total time was 60 minutes spent with >50% on coordination of care and patient education. 07/24/2024 [place] use (ICD-10 - Z79.899) Saqib is a 59-year-old male with a PMH of HTN, prediabetes, hypothyroidism, bipolar, anxiety, treatment resistant depression that presents for evaluation of heart palpitations on and off x5 days. Reports sensation of irregular heart beat, followed by pause, after which his heart beat resumes a seemingly regular rhythm. Not exacerbated with exertion. Denies additional cardiac symptoms. No recent travel/illness. No medication changes. On exam the patient appears comfortable, no visible increased work of breathing. HR mildly tachy to 102. Auscultation reveals regular rate/rhythm, no murmurs/rubs/or gallops. EKG obtained in office reveals prolonged NV interval to 222, no ST/T wave changes -- (EKG from 01/2021 reveals NSR with normal NV interval at 192). Current differential diagnosis includes medication-induced AV block (patient currently taking nortriptyline and lithium) v. Thyroid dysfunction v. electrolyte derangement. Plan to proceed with labs including CBC, CMP, magnesium, TSH with reflex T4, serum lithium, serum amitriptyline for continued evaluation. Placed Holter monitor x 7 days with goal of capturing irregular heart rate/beats. Patient understands to keep log of cardiac events. Will fax EKG and office note to patient's psychiatrist Dr. Socorro Joseph for continued evaluation. The patient is urged to contact her within the next day to schedule follow up to assess current medications. Will also refer to cardiology given change in EKG. Patient requesting referral to Murali Bl[place] with [facility] Strict ED protocol reviewed, patient understands to call 911/seek immediate medical attention should he develop symptoms including but not limited to chest pain, shortness of breath, difficulty breathing, unusual nausea/vomiting, confusion, syncope, etc. All questions answered to the patient's satisfaction. Patient demonstrates understanding of diagnosis and treatments discussed. Follow-up in 1 week, sooner should any questions/concerns arise. Case discussed with collaborating physician Josh Carballo who has reviewed the assessment/plan. Chart, medications, labs, and vital signs reviewed. Dictation completed with the use of Dragon voice recognition software, prone to medical misidentifications and grammatical errors. All errors are unintentional. Although the practitioner does try to identify and correct errors, some may be present. Please do not hesitate to contact the practitioner for clarification. Total time was 60 minutes spent with >50% on coordination of care and patient education. 07/24/2024 Encounter for therapeutic drug level monitoring (ICD-10 - Z51.81) Saqib is a 59-year-old male with a PMH of HTN, prediabetes, hypothyroidism, bipolar, anxiety, treatment resistant depression that presents for evaluation of heart palpitations on and off x5 days. Reports sensation of irregular heart beat, followed by pause, after which his heart beat resumes a seemingly regular rhythm. Not exacerbated with exertion. Denies additional cardiac symptoms. No recent travel/illness. No medication changes. On exam the patient appears comfortable, no visible increased work of breathing. HR mildly tachy to 102. Auscultation reveals regular rate/rhythm, no murmurs/rubs/or gallops. EKG obtained in office reveals prolonged NV interval to 222, no ST/T wave changes -- (EKG from 01/2021 reveals NSR with normal NV interval at 192). Current differential diagnosis includes medication-induced AV block (patient currently taking nortriptyline and lithium) v. Thyroid dysfunction v. electrolyte derangement. Plan to proceed with labs including CBC, CMP, magnesium, TSH with reflex T4, serum lithium, serum amitriptyline for continued evaluation. Placed Holter monitor x 7 days with goal of capturing irregular heart rate/beats. Patient understands to keep log of cardiac events. Will fax EKG and office note to patient's psychiatrist Dr. Socorro Joseph for continued evaluation. The patient is urged to contact her within the next day to schedule follow up to assess current medications. Will also refer to cardiology given change in EKG. Patient requesting referral to Murali Bliss MD with [facility] Strict ED protocol reviewed, patient understands to call 911/seek immediate medical attention should he develop symptoms including but not limited to chest pain, shortness of breath, difficulty breathing, unusual nausea/vomiting, confusion, syncope, etc. All questions answered to the patient's satisfaction. Patient demonstrates understanding of diagnosis and treatments discussed. Follow-up in 1 week, sooner should any questions/concerns arise. Case discussed with collaborating physician Josh Carballo who has reviewed the assessment/plan. Chart, medications, labs, and vital signs reviewed. Dictation completed with the use of [employer] voice recognition software, prone to medical misidentifications and grammatical errors. All errors are unintentional. Although the practitioner does try to identify and correct errors, some may be present. Please do not hesitate to contact the practitioner for clarification. Total time was 60 minutes spent with >50% on coordination of care and patient education. 08/23/2024 MDD (major depressive disorder), severe (ICD-10 - F32.2) Saqib is a 59-year-old male with a PMH of HTN, prediabetes, hypothyroidism, anxiety, treatment resistant depression that presents for follow-up evaluation on heart palpitations. Patient initially presented to the office 07/24/24 at which time he reported sensation of irregular heart beat, followed by pause, followed by return of regular heart rhythm x 5 days. On medication review, 2 medications were identified that may be contributing to the patient's symptoms (nortriptyline and lithium) which are prescribed by the patient's psychiatrist. An EKG was performed and revealed a prolonged NV interval to 222 (up from 192 01/2021), no ST/T wave changes. Comprehensive labs and serum amitriptyline/lithiu m levels WNL. Holter monitor was placed x1 week. Holter monitor report reviewed. Predominant rhythm: NSR. There are also incidences of first-degree AV block, PACs, and PVCs. Patient reports since his dose of nortriptyline was decreased from 125 to 100 mg the frequency of the heart palpitations has decreased significantly. Continues to occasionally have sensation of skipped beats. Denies additional cardiac symptoms. Physical exam without acute findings. Cardiac auscultation reveals regular rate/rhythm. No audible murmurs, rubs, or gallops. Patient requesting referral to Dr. Ball, referral placed. Will also send most recent office note, Holter report, and EKG with referral. Patient is encouraged to continue monitoring his symptoms. Strict ED protocol reviewed, patient understands to call 911/seek immediate medical attention should he develop symptoms including but not limited to chest pain, shortness of breath, difficulty breathing, unusual nausea/vomiting, confusion, syncope, etc. #MDD/derealization: Patient with history of treatment refractory depression. Follows with psychiatrist Dr. Joseph once every 6 weeks. Continues to take nortriptyline 100 mg daily. Additionally reports lithium regimen has been changed due to kidney dysfunction and recent CMP. Currently taking 150 mg every morning and 600 mg every evening. Patient has tried and failed many adjunctive treatment options for his symptoms of depression/derealiza tion including electroshock therapy and IV ketamine infusions. Seeking additional evaluation, requesting referral to Dr. Galindo, referral provided. All questions answered to the patient's satisfaction. Patient demonstrates understanding of diagnosis and treatments discussed. Follow-up in 8 weeks, sooner should any questions/concerns arise. Case discussed with collaborating physician Josh Carballo who has reviewed the assessment/plan. Chart, medications, labs, and vital signs reviewed. Dictation completed with the use of [employer] voice recognition software, prone to medical misidentifications and grammatical errors. All errors are unintentional. Although the practitioner does try to identify and correct errors, some may be present. Please do not hesitate to contact the practitioner for clarification. Total time was 60 minutes spent with >50% on coordination of care and patient education. 08/01/2024 [place] use (ICD-10 - Z79.899) Saqib is a 59-year-old male with a PMH of HTN, prediabetes, hypothyroidism, bipolar, anxiety, treatment resistant depression that presents for follow-up evaluation on heart palpitations. Patient initially presented to the office 07/24/24 at which time he reported sensation of irregular heart beat, followed by pause, followed by return of regular heart rhythm x 5 days. On medication review, 2 medications were identified that may be contributing to the patient's symptoms (nortriptyline and lithium) which are prescribed by the patient's psychiatrist. An EKG was performed and revealed a prolonged NV interval to 222 (up from 192 01/2021), no ST/T wave changes. Holter monitor was placed, and comprehensive labs were ordered. Office note and EKG were faxed to the patient's psychiatrist Dr. Joseph, who instructed the patient to decrease his dose of nortriptyline from 125 mg to 100 mg 07/31/2024. Referral to cardiology placed. The patient returns today reporting with persistent sensation of irregular heartbeat. Physical exam WNL. Cardiac auscultation reveals regular rate/rhythm - no murmurs, rubs, or gallops. Holter monitor was removed for rhythm analysis. Labs drawn 07/29/2024 including CBC, CMP, magnesium, TSH, vitamin D, and lithium levels within normal limits. Nortriptyline serum level not yet available for my review. The patient is encouraged to continue monitoring his symptoms. Recommending limiting strenuous activity and prioritizing water intake. Plan to review Holter report once available. Will continue to work in coordination with the patient's psychiatrist to ensure quality care. Patient is encouraged to contact Dr. Bliss's office to establish care this week. Strict ED protocol reviewed, patient understands to call 911/seek immediate medical attention should he develop symptoms including but not limited to chest pain, shortness of breath, difficulty breathing, unusual nausea/vomiting, confusion, syncope, etc. All questions answered to the patient's satisfaction. Patient demonstrates understanding of diagnosis and treatments discussed. Follow-up in 4 weeks, sooner should any questions/concerns arise. Case discussed with collaborating physician Josh Carballo who has reviewed the assessment/plan. Chart, medications, labs, and vital signs reviewed. Dictation completed with the use of [employer] voice recognition software, prone to medical misidentifications and grammatical errors. All errors are unintentional. Although the practitioner does try to identify and correct errors, some may be present. Please do not hesitate to contact the practitioner for clarification. 01/30/2025 Stage 3a chronic kidney disease (ICD-10 - N18.31) Saqib is a 59-year-old male with a PMH of treatment resistant MDD, HTN, first-degree AV block, HLD, prediabetes, hypothyroidism, CKD that presents for follow-up appointment. #Heart palpitations: Patient previously being followed for evaluation of irregular heartbeat. EKG with evidence of prolonged NV interval. Holter monitor with evidence of first-degree AV block, PACs, PVCs. Seen by Selina Rivero MD with [facility] cardiology 12/06/2024 at which time baseline labs were ordered which were unremarkable. Scheduling for echocardiogram pending. Repeat Holter monitor x 3 days was placed, awaiting report for review. He is encouraged to continue monitoring symptoms. ED protocol reviewed. Plan to follow-up with cardiology in 6 months a scheduled. #HTN: BP in office 126/74. Continue losartan/HCTZ 100/12.5 mg daily and amlodipine 5 mg daily. #CKD: Labs drawn 12/21/2024 revealed BUN/creatinine 19/1.42, consistent with patient's baseline. #HLD: Lipid panel drawn 12/21/2024 reveals mildly elevated total cholesterol at 116, otherwise WNL. Patient is educated that lifestyle changes including increasing physical activity and dietary changes can aid in decreasing cholesterol levels. Recommending a diet rich in fruits, vegetables, fiber, and healthy fats such as those found in fish and nuts. Limit sugar, processed foods, fried foods, alcohol, red meat, and unhealthy fats such as trans fats and saturated fat. #Prediabetes: A1c 12/21/2024 prediabetic at 5.7%. He understands the importance of above lifestyle recommendations. #Hypothyroidism: TSH drawn 12/21/2024 WNL at 2.49. Continue levothyroxine 25 mcg once daily. #MDD/derealization: Patient with history of treatment refractory depression - continues to experience symptoms of derealization, major depression, and brain fog. Denies SI/HI, panic attacks, jeevan, or AVH. Follows with psychiatrist Dr. Joseph once every 6 weeks. Currently on regimen of nortriptyline 75 mg daily, mirtazapine 7.5 mg QD, lithium 150 mg QAM and 600mg QHS. Has tried/failed adjunct of treatment values including electroshock therapy and IV ketamine infusions. A/O x 3 - mental status is consistent with his baseline. He is encouraged to follow-up with psychiatry 01/31/2025 as scheduled. Discussed possibility of Gene[employer] testing, he will review this option with the psychiatrist at time of appointment tomorrow. All questions answered to the patient's satisfaction. Patient demonstrates understanding of diagnosis and treatments discussed. Follow-up in 8 weeks, sooner should any questions/concerns arise. Case discussed with collaborating physician Josh Carballo who has reviewed the assessment/plan. Chart, medications, labs, and vital signs reviewed. Dictation completed with the use of [employer] voice recognition software, prone to medical misidentifications and grammatical errors. All errors are unintentional. Although the practitioner does try to identify and correct errors, some may be present. Please do not hesitate to contact the practitioner for clarification. Total time was 30 minutes spent with >50% on coordination of care and patient education. 11/21/2024 Derealization (ICD-10 - F48.1) Saqib is a 59-year-old male with a PMH of HTN, prediabetes, hypothyroidism, anxiety, treatment resistant depression that presents for follow-up. #Heart palpitations: Patient previously being followed for evaluation of irregular heartbeat. EKG with evidence of prolonged NV interval. Holter monitor with evidence of first-degree AV block, PACs, PVCs. Due to these findings, patient's dose of nortriptyline was decreased -currently taking 100 mg with decreased frequency of heart palpitations. Patient continues to deny additional cardiac symptoms. He is encouraged to continue monitoring his symptoms. He understands to seek immediate medical attention should he develop symptoms including but not limited to chest pain, persistent heart palpitation, difficulty breathing, confusion, weakness, etc. #MDD/derealization: Patient with history of treatment refractory depression - continues to experience symptoms of derealization, major depression, and brain fog. Denies SI/HI, panic attacks, jeevan, or AVH. Follows with psychiatrist Dr. Joseph once every 6 weeks. Currently on regimen of nortriptyline 100 mg daily and lithium 150 mg every morning grams every evening. Has tried/failed adjunct of treatment values including electroshock therapy and IV ketamine infusions. He states he has difficulties with his memory however can recall details about previous depressive treatments from 10+ years ago. He is A/O x 3. Mental status is consistent with his baseline. Discussed that from a primary care perspective, the goal would be to rule out underlying medical etiologies for his symptoms. Most recent labs including CBC, CMP, thyroid function MND, lithium, nortriptyline levels WNL. Per review of [facility] MRI of the brain without contrast 03/12/2020 without evidence of acute/subacute infarction, hemorrhage, or mass. There was however a few scattered foci of T2 signal in the cerebral white matter likely related to minor chronic microvascular ischemic damage. It also appears the patient was referred to neurology in 2021 at which time it was decided by Chad Quezada MD to not offer an appointment due to the patient's young age and many medical/psychiatric issues that can impact memory. Could consider additional imaging of the brain, patient does not feel this is necessary at this time. Recommending he follow up with Dr. Joseph as scheduled 11/22/24. Given the lack of symptom improvement on his current regimen, he is encouraged to discuss options for alternatives with that provider. Also provided information for [email or web address] and [email or web address] should the patient like to establish with therapist or alternative psychiatric provider. He is also encouraged to call the office of Dr. Galindo to f/u on the previous referral. All questions answered to the patient's satisfaction. Patient demonstrates understanding of diagnosis and treatments discussed. Follow-up in 8 weeks, sooner should any questions/concerns arise. Case discussed with collaborating physician Josh Carballo who has reviewed the assessment/plan. Chart, medications, labs, and vital signs reviewed. Dictation completed with the use of [employer] voice recognition software, prone to medical misidentifications and grammatical errors. All errors are unintentional. Although the practitioner does try to identify and correct errors, some may be present. Please do not hesitate to contact the practitioner for clarification. Total time was 60 minutes spent with >50% on coordination of care and patient education. 04/24/2025 Stage 3a chronic kidney disease (ICD-10 - N18.31) Saqib is a 59-year-old male with a PMH of treatment resistant MDD, HTN, first-degree AV block, HLD, prediabetes, hypothyroidism, CKD that presents for follow-up appointment. #Heart palpitations: Patient previously being followed for evaluation of irregular heartbeat. EKG with evidence of prolonged NV interval. Holter monitor with evidence of first-degree AV block, PACs, PVCs. Seen by Selina Rivero MD with [facility] cardiology 12/06/2024 at which time baseline labs were ordered which were unremarkable. Repeat Holter monitor x 3 days was placed and the patient and echo was ordered. He is encouraged to continue monitoring symptoms. ED protocol reviewed. Plan to follow-up with cardiology in May as scheduled. #HTN: BP in office 132/78. Continue losartan/HCTZ 100/12.5 mg daily and amlodipine 5 mg daily. #CKD: Labs drawn 12/21/2024 revealed BUN/creatinine 19/1.42, consistent with patient's baseline. #HLD: Lipid panel drawn 12/21/2024 reveals mildly elevated total cholesterol at 116, otherwise WNL. Patient is encouraged to continue to maintain lifestyle changes and fish oil supplement. Plan to recheck lipid panel at time of physical. #Prediabetes: A1c 12/21/2024 prediabetic at 5.7%. He understands the importance of above lifestyle recommendations. #Hypothyroidism: Continue levothyroxine 25 mcg once daily. #MDD/derealization: Patient with history of treatment refractory depression - continues to experience symptoms of derealization, major depression, and brain fog., Follows with psychiatrist Dr. Joseph once every 6 weeks. Currently on regimen of nortriptyline 75 mg daily, mirtazapine 7.5 mg QD, lithium 150 mg QAM and 600mg QHS. Has tried/failed adjunct of treatment values including electroshock therapy and IV ketamine infusions. A/O x 3 - mental status is consistent with his baseline. He is encouraged to follow-up with psychiatry [id number] as scheduled. All questions answered to the patient's satisfaction. Patient demonstrates understanding of diagnosis and treatments discussed. Follow-up in 8 weeks, sooner should any questions/concerns arise. Case discussed with collaborating physician Josh Carballo who has reviewed the assessment/plan. Chart, medications, labs, and vital signs reviewed. Dictation completed with the use of [employer] voice recognition software, prone to medical misidentifications and grammatical errors. All errors are unintentional. Although the practitioner does try to identify and correct errors, some may be present. Please do not hesitate to contact the practitioner for clarification. Total time was 30 minutes spent with >50% on coordination of care and patient education. 11/21/2024 MDD (major depressive disorder), severe (ICD-10 - F32.2) Saqib is a 59-year-old male with a PMH of HTN, prediabetes, hypothyroidism, anxiety, treatment resistant depression that presents for follow-up. #Heart palpitations: Patient previously being followed for evaluation of irregular heartbeat. EKG with evidence of prolonged NV interval. Holter monitor with evidence of first-degree AV block, PACs, PVCs. Due to these findings, patient's dose of nortriptyline was decreased -currently taking 100 mg with decreased frequency of heart palpitations. Patient continues to deny additional cardiac symptoms. He is encouraged to continue monitoring his symptoms. He understands to seek immediate medical attention should he develop symptoms including but not limited to chest pain, persistent heart palpitation, difficulty breathing, confusion, weakness, etc. #MDD/derealization: Patient with history of treatment refractory depression - continues to experience symptoms of derealization, major depression, and brain fog. Denies SI/HI, panic attacks, jeevan, or AVH. Follows with psychiatrist Dr. Joseph once every 6 weeks. Currently on regimen of nortriptyline 100 mg daily and lithium 150 mg every morning grams every evening. Has tried/failed adjunct of treatment values including electroshock therapy and IV ketamine infusions. He states he has difficulties with his memory however can recall details about previous depressive treatments from 10+ years ago. He is A/O x 3. Mental status is consistent with his baseline. Discussed that from a primary care perspective, the goal would be to rule out underlying medical etiologies for his symptoms. Most recent labs including CBC, CMP, thyroid function MND, lithium, nortriptyline levels WNL. Per review of [facility] MRI of the brain without contrast 03/12/2020 without evidence of acute/subacute infarction, hemorrhage, or mass. There was however a few scattered foci of T2 signal in the cerebral white matter likely related to minor chronic microvascular ischemic damage. It also appears the patient was referred to neurology in 2021 at which time it was decided by Chad Quezada MD to not offer an appointment due to the patient's young age and many medical/psychiatric issues that can impact memory. Could consider additional imaging of the brain, patient does not feel this is necessary at this time. Recommending he follow up with Dr. Joseph as scheduled 11/22/24. Given the lack of symptom improvement on his current regimen, he is encouraged to discuss options for alternatives with that provider. Also provided information for [email or web address] and [email or web address] should the patient like to establish with therapist or alternative psychiatric provider. He is also encouraged to call the office of Dr. Galindo to f/u on the previous referral. All questions answered to the patient's satisfaction. Patient demonstrates understanding of diagnosis and treatments discussed. Follow-up in 8 weeks, sooner should any questions/concerns arise. Case discussed with collaborating physician Josh Carballo who has reviewed the assessment/plan. Chart, medications, labs, and vital signs reviewed. Dictation completed with the use of [employer] voice recognition software, prone to medical misidentifications and grammatical errors. All errors are unintentional. Although the practitioner does try to identify and correct errors, some may be present. Please do not hesitate to contact the practitioner for clarification. Total time was 60 minutes spent with >50% on coordination of care and patient education. 04/24/2025 Elevated LDL cholesterol level (ICD-10 - E78.00) Saqib is a 59-year-old male with a PMH of treatment resistant MDD, HTN, first-degree AV block, HLD, prediabetes, hypothyroidism, CKD that presents for follow-up appointment. #Heart palpitations: Patient previously being followed for evaluation of irregular heartbeat. EKG with evidence of prolonged NV interval. Holter monitor with evidence of first-degree AV block, PACs, PVCs. Seen by Selina Rivero MD with [facility] cardiology 12/06/2024 at which time baseline labs were ordered which were unremarkable. Repeat Holter monitor x 3 days was placed and the patient and echo was ordered. He is encouraged to continue monitoring symptoms. ED protocol reviewed. Plan to follow-up with cardiology in May as scheduled. #HTN: BP in office 132/78. Continue losartan/HCTZ 100/12.5 mg daily and amlodipine 5 mg daily. #CKD: Labs drawn 12/21/2024 revealed BUN/creatinine 19/1.42, consistent with patient's baseline. #HLD: Lipid panel drawn 12/21/2024 reveals mildly elevated total cholesterol at 116, otherwise WNL. Patient is encouraged to continue to maintain lifestyle changes and fish oil supplement. Plan to recheck lipid panel at time of physical. #Prediabetes: A1c 12/21/2024 prediabetic at 5.7%. He understands the importance of above lifestyle recommendations. #Hypothyroidism: Continue levothyroxine 25 mcg once daily. #MDD/derealization: Patient with history of treatment refractory depression - continues to experience symptoms of derealization, major depression, and brain fog., Follows with psychiatrist Dr. Joseph once every 6 weeks. Currently on regimen of nortriptyline 75 mg daily, mirtazapine 7.5 mg QD, lithium 150 mg QAM and 600mg QHS. Has tried/failed adjunct of treatment values including electroshock therapy and IV ketamine infusions. A/O x 3 - mental status is consistent with his baseline. He is encouraged to follow-up with psychiatry 25 as scheduled. All questions answered to the patient's satisfaction. Patient demonstrates understanding of diagnosis and treatments discussed. Follow-up in 8 weeks, sooner should any questions/concerns arise. Case discussed with collaborating physician Josh Carballo who has reviewed the assessment/plan. Chart, medications, labs, and vital signs reviewed. Dictation completed with the use of [employer] voice recognition software, prone to medical misidentifications and grammatical errors. All errors are unintentional. Although the practitioner does try to identify and correct errors, some may be present. Please do not hesitate to contact the practitioner for clarification. Total time was 30 minutes spent with >50% on coordination of care and patient education. 01/30/2025 Elevated LDL cholesterol level (ICD-10 - E78.00) Saqib is a 59-year-old male with a PMH of treatment resistant MDD, HTN, first-degree AV block, HLD, prediabetes, hypothyroidism, CKD that presents for follow-up appointment. #Heart palpitations: Patient previously being followed for evaluation of irregular heartbeat. EKG with evidence of prolonged NV interval. Holter monitor with evidence of first-degree AV block, PACs, PVCs. Seen by Selina Rivero MD with [facility] cardiology 12/06/2024 at which time baseline labs were ordered which were unremarkable. Scheduling for echocardiogram pending. Repeat Holter monitor x 3 days was placed, awaiting report for review. He is encouraged to continue monitoring symptoms. ED protocol reviewed. Plan to follow-up with cardiology in 6 months a scheduled. #HTN: BP in office 126/74. Continue losartan/HCTZ 100/12.5 mg daily and amlodipine 5 mg daily. #CKD: Labs drawn 12/21/2024 revealed BUN/creatinine 19/1.42, consistent with patient's baseline. #HLD: Lipid panel drawn 12/21/2024 reveals mildly elevated total cholesterol at 116, otherwise WNL. Patient is educated that lifestyle changes including increasing physical activity and dietary changes can aid in decreasing cholesterol levels. Recommending a diet rich in fruits, vegetables, fiber, and healthy fats such as those found in fish and nuts. Limit sugar, processed foods, fried foods, alcohol, red meat, and unhealthy fats such as trans fats and saturated fat. #Prediabetes: A1c 12/21/2024 prediabetic at 5.7%. He understands the importance of above lifestyle recommendations. #Hypothyroidism: TSH drawn 12/21/2024 WNL at 2.49. Continue levothyroxine 25 mcg once daily. #MDD/derealization: Patient with history of treatment refractory depression - continues to experience symptoms of derealization, major depression, and brain fog. Denies SI/HI, panic attacks, jeevan, or AVH. Follows with psychiatrist Dr. Joseph once every 6 weeks. Currently on regimen of nortriptyline 75 mg daily, mirtazapine 7.5 mg QD, lithium 150 mg QAM and 600mg QHS. Has tried/failed adjunct of treatment values including electroshock therapy and IV ketamine infusions. A/O x 3 - mental status is consistent with his baseline. He is encouraged to follow-up with psychiatry 01/31/2025 as scheduled. Discussed possibility of Gene[employer]ight testing, he will review this option with the psychiatrist at time of appointment tomorrow. All questions answered to the patient's satisfaction. Patient demonstrates understanding of diagnosis and treatments discussed. Follow-up in 8 weeks, sooner should any questions/concerns arise. Case discussed with collaborating physician Josh Carballo who has reviewed the assessment/plan. Chart, medications, labs, and vital signs reviewed. Dictation completed with the use of [employer] voice recognition software, prone to medical misidentifications and grammatical errors. All errors are unintentional. Although the practitioner does try to identify and correct errors, some may be present. Please do not hesitate to contact the practitioner for clarification. Total time was 30 minutes spent with >50% on coordination of care and patient education. 08/01/2024 Encounter for therapeutic drug level monitoring (ICD-10 - Z51.81) Saqib is a 59-year-old male with a PMH of HTN, prediabetes, hypothyroidism, bipolar, anxiety, treatment resistant depression that presents for follow-up evaluation on heart palpitations. Patient initially presented to the office 07/24/24 at which time he reported sensation of irregular heart beat, followed by pause, followed by return of regular heart rhythm x 5 days. On medication review, 2 medications were identified that may be contributing to the patient's symptoms (nortriptyline and lithium) which are prescribed by the patient's psychiatrist. An EKG was performed and revealed a prolonged NV interval to 222 (up from 192 01/2021), no ST/T wave changes. Holter monitor was placed, and comprehensive labs were ordered. Office note and EKG were faxed to the patient's psychiatrist Dr. Joseph, who instructed the patient to decrease his dose of nortriptyline from 125 mg to 100 mg 07/31/2024. Referral to cardiology placed. The patient returns today reporting with persistent sensation of irregular heartbeat. Physical exam WNL. Cardiac auscultation reveals regular rate/rhythm - no murmurs, rubs, or gallops. Holter monitor was removed for rhythm analysis. Labs drawn 07/29/2024 including CBC, CMP, magnesium, TSH, vitamin D, and lithium levels within normal limits. Nortriptyline serum level not yet available for my review. The patient is encouraged to continue monitoring his symptoms. Recommending limiting strenuous activity and prioritizing water intake. Plan to review Holter report once available. Will continue to work in coordination with the patient's psychiatrist to ensure quality care. Patient is encouraged to contact Dr. Bliss's office to establish care this week. Strict ED protocol reviewed, patient understands to call 911/seek immediate medical attention should he develop symptoms including but not limited to chest pain, shortness of breath, difficulty breathing, unusual nausea/vomiting, confusion, syncope, etc. All questions answered to the patient's satisfaction. Patient demonstrates understanding of diagnosis and treatments discussed. Follow-up in 4 weeks, sooner should any questions/concerns arise. Case discussed with collaborating physician Josh Carballo who has reviewed the assessment/plan. Chart, medications, labs, and vital signs reviewed. Dictation completed with the use of [employer] voice recognition software, prone to medical misidentifications and grammatical errors. All errors are unintentional. Although the practitioner does try to identify and correct errors, some may be present. Please do not hesitate to contact the practitioner for clarification. 04/24/2025 Prediabetes (ICD-10 - R73.03) Saqib is a 59-year-old male with a PMH of treatment resistant MDD, HTN, first-degree AV block, HLD, prediabetes, hypothyroidism, CKD that presents for follow-up appointment. #Heart palpitations: Patient previously being followed for evaluation of irregular heartbeat. EKG with evidence of prolonged NV interval. Holter monitor with evidence of first-degree AV block, PACs, PVCs. Seen by Selina Rivero MD with [facility] cardiology 12/06/2024 at which time baseline labs were ordered which were unremarkable. Repeat Holter monitor x 3 days was placed and the patient and echo was ordered. He is encouraged to continue monitoring symptoms. ED protocol reviewed. Plan to follow-up with cardiology in May as scheduled. #HTN: BP in office 132/78. Continue losartan/HCTZ 100/12.5 mg daily and amlodipine 5 mg daily. #CKD: Labs drawn 12/21/2024 revealed BUN/creatinine 19/1.42, consistent with patient's baseline. #HLD: Lipid panel drawn 12/21/2024 reveals mildly elevated total cholesterol at 116, otherwise WNL. Patient is encouraged to continue to maintain lifestyle changes and fish oil supplement. Plan to recheck lipid panel at time of physical. #Prediabetes: A1c 12/21/2024 prediabetic at 5.7%. He understands the importance of above lifestyle recommendations. #Hypothyroidism: Continue levothyroxine 25 mcg once daily. #MDD/derealization: Patient with history of treatment refractory depression - continues to experience symptoms of derealization, major depression, and brain fog., Follows with psychiatrist Dr. Joseph once every 6 weeks. Currently on regimen of nortriptyline 75 mg daily, mirtazapine 7.5 mg QD, lithium 150 mg QAM and 600mg QHS. Has tried/failed adjunct of treatment values including electroshock therapy and IV ketamine infusions. A/O x 3 - mental status is consistent with his baseline. He is encouraged to follow-up with psychiatry [id number] as scheduled. All questions answered to the patient's satisfaction. Patient demonstrates understanding of diagnosis and treatments discussed. Follow-up in 8 weeks, sooner should any questions/concerns arise. Case discussed with collaborating physician Josh Carballo who has reviewed the assessment/plan. Chart, medications, labs, and vital signs reviewed. Dictation completed with the use of [employer] voice recognition software, prone to medical misidentifications and grammatical errors. All errors are unintentional. Although the practitioner does try to identify and correct errors, some may be present. Please do not hesitate to contact the practitioner for clarification. Total time was 30 minutes spent with >50% on coordination of care and patient education. 01/30/2025 Prediabetes (ICD-10 - R73.03) Saqib is a 59-year-old male with a PMH of treatment resistant MDD, HTN, first-degree AV block, HLD, prediabetes, hypothyroidism, CKD that presents for follow-up appointment. #Heart palpitations: Patient previously being followed for evaluation of irregular heartbeat. EKG with evidence of prolonged NV interval. Holter monitor with evidence of first-degree AV block, PACs, PVCs. Seen by Selina Rivero MD with [facility] cardiology 12/06/2024 at which time baseline labs were ordered which were unremarkable. Scheduling for echocardiogram pending. Repeat Holter monitor x 3 days was placed, awaiting report for review. He is encouraged to continue monitoring symptoms. ED protocol reviewed. Plan to follow-up with cardiology in 6 months a scheduled. #HTN: BP in office 126/74. Continue losartan/HCTZ 100/12.5 mg daily and amlodipine 5 mg daily. #CKD: Labs drawn 12/21/2024 revealed BUN/creatinine 19/1.42, consistent with patient's baseline. #HLD: Lipid panel drawn 12/21/2024 reveals mildly elevated total cholesterol at 116, otherwise WNL. Patient is educated that lifestyle changes including increasing physical activity and dietary changes can aid in decreasing cholesterol levels. Recommending a diet rich in fruits, vegetables, fiber, and healthy fats such as those found in fish and nuts. Limit sugar, processed foods, fried foods, alcohol, red meat, and unhealthy fats such as trans fats and saturated fat. #Prediabetes: A1c 12/21/2024 prediabetic at 5.7%. He understands the importance of above lifestyle recommendations. #Hypothyroidism: TSH drawn 12/21/2024 WNL at 2.49. Continue levothyroxine 25 mcg once daily. #MDD/derealization: Patient with history of treatment refractory depression - continues to experience symptoms of derealization, major depression, and brain fog. Denies SI/HI, panic attacks, jeevan, or AVH. Follows with psychiatrist Dr. Joseph once every 6 weeks. Currently on regimen of nortriptyline 75 mg daily, mirtazapine 7.5 mg QD, lithium 150 mg QAM and 600mg QHS. Has tried/failed adjunct of treatment values including electroshock therapy and IV ketamine infusions. A/O x 3 - mental status is consistent with his baseline. He is encouraged to follow-up with psychiatry 01/31/2025 as scheduled. Discussed possibility of Gene[employer] testing, he will review this option with the psychiatrist at time of appointment tomorrow. All questions answered to the patient's satisfaction. Patient demonstrates understanding of diagnosis and treatments discussed. Follow-up in 8 weeks, sooner should any questions/concerns arise. Case discussed with collaborating physician Josh Carballo who has reviewed the assessment/plan. Chart, medications, labs, and vital signs reviewed. Dictation completed with the use of [employer] voice recognition software, prone to medical misidentifications and grammatical errors. All errors are unintentional. Although the practitioner does try to identify and correct errors, some may be present. Please do not hesitate to contact the practitioner for clarification. Total time was 30 minutes spent with >50% on coordination of care and patient education. 01/30/2025 Derealization (ICD-10 - F48.1) Saqib is a 59-year-old male with a PMH of treatment resistant MDD, HTN, first-degree AV block, HLD, prediabetes, hypothyroidism, CKD that presents for follow-up appointment. #Heart palpitations: Patient previously being followed for evaluation of irregular heartbeat. EKG with evidence of prolonged NV interval. Holter monitor with evidence of first-degree AV block, PACs, PVCs. Seen by Selina Rivero MD with [facility] cardiology 12/06/2024 at which time baseline labs were ordered which were unremarkable. Scheduling for echocardiogram pending. Repeat Holter monitor x 3 days was placed, awaiting report for review. He is encouraged to continue monitoring symptoms. ED protocol reviewed. Plan to follow-up with cardiology in 6 months a scheduled. #HTN: BP in office 126/74. Continue losartan/HCTZ 100/12.5 mg daily and amlodipine 5 mg daily. #CKD: Labs drawn 12/21/2024 revealed BUN/creatinine 19/1.42, consistent with patient's baseline. #HLD: Lipid panel drawn 12/21/2024 reveals mildly elevated total cholesterol at 116, otherwise WNL. Patient is educated that lifestyle changes including increasing physical activity and dietary changes can aid in decreasing cholesterol levels. Recommending a diet rich in fruits, vegetables, fiber, and healthy fats such as those found in fish and nuts. Limit sugar, processed foods, fried foods, alcohol, red meat, and unhealthy fats such as trans fats and saturated fat. #Prediabetes: A1c 12/21/2024 prediabetic at 5.7%. He understands the importance of above lifestyle recommendations. #Hypothyroidism: TSH drawn 12/21/2024 WNL at 2.49. Continue levothyroxine 25 mcg once daily. #MDD/derealization: Patient with history of treatment refractory depression - continues to experience symptoms of derealization, major depression, and brain fog. Denies SI/HI, panic attacks, jeevan, or AVH. Follows with psychiatrist Dr. Joseph once every 6 weeks. Currently on regimen of nortriptyline 75 mg daily, mirtazapine 7.5 mg QD, lithium 150 mg QAM and 600mg QHS. Has tried/failed adjunct of treatment values including electroshock therapy and IV ketamine infusions. A/O x 3 - mental status is consistent with his baseline. He is encouraged to follow-up with psychiatry 01/31/2025 as scheduled. Discussed possibility of GeneSight testing, he will review this option with the psychiatrist at time of appointment tomorrow. All questions answered to the patient's satisfaction. Patient demonstrates understanding of diagnosis and treatments discussed. Follow-up in 8 weeks, sooner should any questions/concerns arise. Case discussed with collaborating physician Josh Carballo who has reviewed the assessment/plan. Chart, medications, labs, and vital signs reviewed. Dictation completed with the use of [employer] voice recognition software, prone to medical misidentifications and grammatical errors. All errors are unintentional. Although the practitioner does try to identify and correct errors, some may be present. Please do not hesitate to contact the practitioner for clarification. Total time was 30 minutes spent with >50% on coordination of care and patient education. 04/24/2025 Derealization (ICD-10 - F48.1) Saqib is a 59-year-old male with a PMH of treatment resistant MDD, HTN, first-degree AV block, HLD, prediabetes, hypothyroidism, CKD that presents for follow-up appointment. #Heart palpitations: Patient previously being followed for evaluation of irregular heartbeat. EKG with evidence of prolonged NV interval. Holter monitor with evidence of first-degree AV block, PACs, PVCs. Seen by Selina Rivero MD with [facility] cardiology 12/06/2024 at which time baseline labs were ordered which were unremarkable. Repeat Holter monitor x 3 days was placed and the patient and echo was ordered. He is encouraged to continue monitoring symptoms. ED protocol reviewed. Plan to follow-up with cardiology in May as scheduled. #HTN: BP in office 132/78. Continue losartan/HCTZ 100/12.5 mg daily and amlodipine 5 mg daily. #CKD: Labs drawn 12/21/2024 revealed BUN/creatinine 19/1.42, consistent with patient's baseline. #HLD: Lipid panel drawn 12/21/2024 reveals mildly elevated total cholesterol at 116, otherwise WNL. Patient is encouraged to continue to maintain lifestyle changes and fish oil supplement. Plan to recheck lipid panel at time of physical. #Prediabetes: A1c 12/21/2024 prediabetic at 5.7%. He understands the importance of above lifestyle recommendations. #Hypothyroidism: Continue levothyroxine 25 mcg once daily. #MDD/derealization: Patient with history of treatment refractory depression - continues to experience symptoms of derealization, major depression, and brain fog., Follows with psychiatrist Dr. Joseph once every 6 weeks. Currently on regimen of nortriptyline 75 mg daily, mirtazapine 7.5 mg QD, lithium 150 mg QAM and 600mg QHS. Has tried/failed adjunct of treatment values including electroshock therapy and IV ketamine infusions. A/O x 3 - mental status is consistent with his baseline. He is encouraged to follow-up with psychiatry [id number] as scheduled. All questions answered to the patient's satisfaction. Patient demonstrates understanding of diagnosis and treatments discussed. Follow-up in 8 weeks, sooner should any questions/concerns arise. Case discussed with collaborating physician Josh Carballo who has reviewed the assessment/plan. Chart, medications, labs, and vital signs reviewed. Dictation completed with the use of [employer] voice recognition software, prone to medical misidentifications and grammatical errors. All errors are unintentional. Although the practitioner does try to identify and correct errors, some may be present. Please do not hesitate to contact the practitioner for clarification. Total time was 30 minutes spent with >50% on coordination of care and patient education. 04/24/2025 MDD (major depressive disorder), severe (ICD-10 - F32.2) Saqib is a 59-year-old male with a PMH of treatment resistant MDD, HTN, first-degree AV block, HLD, prediabetes, hypothyroidism, CKD that presents for follow-up appointment. #Heart palpitations: Patient previously being followed for evaluation of irregular heartbeat. EKG with evidence of prolonged NV interval. Holter monitor with evidence of first-degree AV block, PACs, PVCs. Seen by Selina Rivero MD with [facility] cardiology 12/06/2024 at which time baseline labs were ordered which were unremarkable. Repeat Holter monitor x 3 days was placed and the patient and echo was ordered. He is encouraged to continue monitoring symptoms. ED protocol reviewed. Plan to follow-up with cardiology in May as scheduled. #HTN: BP in office 132/78. Continue losartan/HCTZ 100/12.5 mg daily and amlodipine 5 mg daily. #CKD: Labs drawn 12/21/2024 revealed BUN/creatinine 19/1.42, consistent with patient's baseline. #HLD: Lipid panel drawn 12/21/2024 reveals mildly elevated total cholesterol at 116, otherwise WNL. Patient is encouraged to continue to maintain lifestyle changes and fish oil supplement. Plan to recheck lipid panel at time of physical. #Prediabetes: A1c 12/21/2024 prediabetic at 5.7%. He understands the importance of above lifestyle recommendations. #Hypothyroidism: Continue levothyroxine 25 mcg once daily. #MDD/derealization: Patient with history of treatment refractory depression - continues to experience symptoms of derealization, major depression, and brain fog., Follows with psychiatrist Dr. Joseph once every 6 weeks. Currently on regimen of nortriptyline 75 mg daily, mirtazapine 7.5 mg QD, lithium 150 mg QAM and 600mg QHS. Has tried/failed adjunct of treatment values including electroshock therapy and IV ketamine infusions. A/O x 3 - mental status is consistent with his baseline. He is encouraged to follow-up with psychiatry 25 as scheduled. All questions answered to the patient's satisfaction. Patient demonstrates understanding of diagnosis and treatments discussed. Follow-up in 8 weeks, sooner should any questions/concerns arise. Case discussed with collaborating physician Josh Carballo who has reviewed the assessment/plan. Chart, medications, labs, and vital signs reviewed. Dictation completed with the use of [employer] voice recognition software, prone to medical misidentifications and grammatical errors. All errors are unintentional. Although the practitioner does try to identify and correct errors, some may be present. Please do not hesitate to contact the practitioner for clarification. Total time was 30 minutes spent with >50% on coordination of care and patient education. 01/30/2025 MDD (major depressive disorder), severe (ICD-10 - F32.2) Saqib is a 59-year-old male with a PMH of treatment resistant MDD, HTN, first-degree AV block, HLD, prediabetes, hypothyroidism, CKD that presents for follow-up appointment. #Heart palpitations: Patient previously being followed for evaluation of irregular heartbeat. EKG with evidence of prolonged NV interval. Holter monitor with evidence of first-degree AV block, PACs, PVCs. Seen by Selina Rivero MD with [facility] cardiology 12/06/2024 at which time baseline labs were ordered which were unremarkable. Scheduling for echocardiogram pending. Repeat Holter monitor x 3 days was placed, awaiting report for review. He is encouraged to continue monitoring symptoms. ED protocol reviewed. Plan to follow-up with cardiology in 6 months a scheduled. #HTN: BP in office 126/74. Continue losartan/HCTZ 100/12.5 mg daily and amlodipine 5 mg daily. #CKD: Labs drawn 12/21/2024 revealed BUN/creatinine 19/1.42, consistent with patient's baseline. #HLD: Lipid panel drawn 12/21/2024 reveals mildly elevated total cholesterol at 116, otherwise WNL. Patient is educated that lifestyle changes including increasing physical activity and dietary changes can aid in decreasing cholesterol levels. Recommending a diet rich in fruits, vegetables, fiber, and healthy fats such as those found in fish and nuts. Limit sugar, processed foods, fried foods, alcohol, red meat, and unhealthy fats such as trans fats and saturated fat. #Prediabetes: A1c 12/21/2024 prediabetic at 5.7%. He understands the importance of above lifestyle recommendations. #Hypothyroidism: TSH drawn 12/21/2024 WNL at 2.49. Continue levothyroxine 25 mcg once daily. #MDD/derealization: Patient with history of treatment refractory depression - continues to experience symptoms of derealization, major depression, and brain fog. Denies SI/HI, panic attacks, jeevan, or AVH. Follows with psychiatrist Dr. Joseph once every 6 weeks. Currently on regimen of nortriptyline 75 mg daily, mirtazapine 7.5 mg QD, lithium 150 mg QAM and 600mg QHS. Has tried/failed adjunct of treatment values including electroshock therapy and IV ketamine infusions. A/O x 3 - mental status is consistent with his baseline. He is encouraged to follow-up with psychiatry 01/31/2025 as scheduled. Discussed possibility of GeneSight testing, he will review this option with the psychiatrist at time of appointment tomorrow. All questions answered to the patient's satisfaction. Patient demonstrates understanding of diagnosis and treatments discussed. Follow-up in 8 weeks, sooner should any questions/concerns arise. Case discussed with collaborating physician Josh Carballo who has reviewed the assessment/plan. Chart, medications, labs, and vital signs reviewed. Dictation completed with the use of [employer] voice recognition software, prone to medical misidentifications and grammatical errors. All errors are unintentional. Although the practitioner does try to identify and correct errors, some may be present. Please do not hesitate to contact the practitioner for clarification. Total time was 30 minutes spent with >50% on coordination of care and patient education. Plan Of Treatment Pending Test Test Name Order Date Nortriptyline (Aventyl), Serum 4 Nortriptyline (Aventyl), Serum 5 [place] (Eskalith), Serum 04/24/2025 T4 and TSH 07/24/2024 Holter Test 02/16/2021 EKG 02/16/2021 EKG 06/12/2019 1,25OH VITAMIN D 07/24/2024 25OH VITAMIN D 02/04/2021 CBC (COMPLETE BLOOD COUNT) 02/06/2020 CBC (COMPLETE BLOOD COUNT) 07/25/2018 CBC (COMPLETE BLOOD COUNT) 01/23/2019 CBC (COMPLETE BLOOD COUNT) 02/04/2021 COMPREHENSIVE METABOLIC PANEL 02/04/2021 COMPREHENSIVE METABOLIC PANEL 02/16/2021 COMPREHENSIVE METABOLIC PANEL 01/23/2019 COMPREHENSIVE METABOLIC PANEL 07/25/2018 COMPREHENSIVE METABOLIC PANEL 02/06/2020 COMPREHENSIVE METABOLIC PANEL 07/24/2024 HEMOGLOBIN A1C 02/06/2020 HEMOGLOBIN A1C 07/25/2018 HEMOGLOBIN A1C 01/23/2019 HEMOGLOBIN A1C 02/04/2021 LIPID PANEL 02/04/2021 LIPID PANEL 01/23/2019 LIPID PANEL 07/25/2018 LIPID PANEL 02/06/2020 LITHIUM 07/24/2024 MAGNESIUM 07/24/2024 PSA, SCREEN 02/04/2021 T3, FREE 02/04/2021 T4, FREE 02/04/2021 TSH 02/04/2021 URINALYSIS, COMPLETE 02/04/2021 URINALYSIS, COMPLETE 02/06/2020 URINALYSIS, COMPLETE 07/25/2018 URINALYSIS, COMPLETE 01/23/2019 [place] Level 02/16/2021 LIPID PANEL, STANDARD 01/10/2024 LIPID PANEL, STANDARD 05/23/2024 LIPID PANEL, STANDARD 04/24/2025 COMPREHENSIVE METABOLIC PANEL 05/23/2024 COMPREHENSIVE METABOLIC PANEL 04/24/2025 COMPREHENSIVE METABOLIC PANEL 01/10/2024 COMPREHENSIVE METABOLIC PANEL 04/06/2023 COMPREHENSIVE METABOLIC PANEL 08/17/2023 CBC (INCLUDES DIFF/PLT) 04/06/2023 CBC (INCLUDES DIFF/PLT) 01/10/2024 CBC (INCLUDES DIFF/PLT) 04/24/2025 CBC (INCLUDES DIFF/PLT) 07/24/2024 CBC (INCLUDES DIFF/PLT) 05/23/2024 URINALYSIS, COMPLETE 05/23/2024 URINALYSIS, COMPLETE 05/27/2021 HEMOGLOBIN A1c 05/23/2024 HEMOGLOBIN A1c 01/10/2024 HEMOGLOBIN A1c 04/24/2025 TSH 04/06/2023 TSH W/REFLEX TO FT4 04/24/2025 VITAMIN D,25-OH,TOTAL,IA 04/24/2025 Future Test Test Name Order Date CBC (COMPLETE BLOOD COUNT) WITH DIFF COMPREHENSIVE METABOLIC PANEL 04/05/2023 HEMOGLOBIN A1C 04/05/2023 LIPID PANEL 04/05/2023 Next Appt Details Provider Name:GARFIELD Nicholas, 08/07/2025 01:00:00 PM, [address] [facility], [facility] [address], [place], [address], Insurance Providers Payer Name Payer Address Payer Phone Subscriber Number Group Number Insured Name Patient Relationship to Insured Coverage Start Date Coverage End Date [facility] [address] [place] [address] [id number] SAQIB WARE Self - patient is the insured 5 Medical (General) History Medical History History ICD Code Depression, unspecified F32.A Anxiety F41.9 Hypothyroidism (acquired) E03.9 Fibromyalgia M79.7 Stutter F80.81 BRITNI (obstructive sleep apnea) G47.33 Vitamin D deficiency E55.9 Surgical History Surgery Date(Month/Year) Hospitalization History Reason Date(Month/Year) pneumonia at age 1 with lung collapse an d hypoxia
--- OUTSIDE RECORDS SUMMARY | 2025-07-11 15:06 | XMS_ITS ---
Author Name [facility] Organization Unknown Problems Problem Status Onset Date Problem Type Date of Resoluti on Source Prolonged P-R interval active EncounterDiagnosisAct CCT Care Team Organization Name Specialty Phone Email Start Date End Da jose [facility] 08/30/2024
--- OUTSIDE RECORDS SUMMARY | 2025-07-11 15:06 | XMS_ITS | Clinical Summary ---
Author Organization [facility] Address [address] [address] Phone Care Team Providers Care Information Resource Consultant Name Role Phone Leana Carballo MD Primary Care Provider Social History Tobacco Use Types Packs/Day Years Used Date Smoking Tobacco: Never Assessed Education Answer Date Recorded Are you interested in more education? Not on tali e 12/24/2022 Are you concerned about learning? Not on file 12/24/2022 No 12/24/2022 No 12/24/2022 Digital Access Answer Date Recorded No 01/15/2023 No 01/15/2023 No 01/15/2023 Reliable internet access at home? Not on file 01/15/2023 Device with a working camera? Not on file Sex and Gender Information Value Date Recorded Sex Assigned at Not on file Legal Sex Male 5:42 PM EST Gender Identity Not on file Sexual Orientation Not on file Plan of Treatment Upcoming Encounters Date Type Department Care Team (Late st Contact Info) Description 10/10/2025 2:45 PM EST Office Visit [facility] [address] [place] [address] Jan Gant MD [address] [place] [address] 10/30/2025 1:00 PM EDT Office Visit [facility] [address] [place] [address] [place] [address] Ellen Go MD [address] [place] [phone] [email or web address] Health Maintenance Due Date Last Done Comments Adult Td,Tdap Booster 1963 LIPID PANEL 1963 DEPRESSION SCREENING 1975 SMOKING Hx and SMOKELESS TOB ACCO SCREENING 1976 HEPATITIS C SCREENING 1981 HIV ONE-TIME SCREENING (18-6 5 YEARS) 1981 COLOGUARD 2008 COLONOSCOPY 2008 COLORECTAL CANCER SCREENING 2008 FIT TEST 2008 FOBT 2008 SIGMOIDOSCOPY 2008 VIRTUAL COLONOSCOPY 2008 PNEUMOCOCCAL VACCINES (50+ y ears) (1 of 1 - PCV) 2013 ZOSTER VACCINES (1 of 2) 2013 INFLUENZA VACCINE (#1) 2025 COVID-19 VACCINE (1 - 2024-2 6 season) 2025 RSV VACCINE (1 - 1-dose 75+ series) 2038 HEPATITIS A VACCINES Aged Out No long er eligible based on patient's age to complete this topic HIB VACCINES Aged Out No longer eligi ble based on patient's age to complete this topic IPV VACCINES Aged Out No longer eligi ble based on patient's age to complete this topic MENINGOCOCCAL VACCINES (ACWY) Aged Out No longer eligible based on patient's age to complete this topic MENINGOCOCCAL VACCINES (B) Aged Out N o longer eligible based on patient's age to complete this topic Medical [employer] Not on file [place] [address] [address] [place] [address] [employer]AL Subscriber Plan / Payer (Ef fective 2004-Present) Name:Saqib Pimentel Relation to Subscriber:Self Name:Saqib Pimentel Payer ID:[id number] (NAIC) Group ID:[id number] Type:PPO Address: [address] [place], [place] Subscriber Plan / Payer (Ef fective 2004-Present) Name:Saqib Pimentel Relation to Subscriber:Self Name:Saqib Pimentel Payer ID:[id number] (NAIC) Group ID:[id number] Type:PPO Address: [address] [place], [place] Care Teams Information Resource Consultant Relationship Specialty Start Date End Date Leana Carballo MD [address] [place] [address] PCP - General Internal Medicine 08/23/21 Additional Source Comments The information contained in this document represents components of the legal health record. It is not the complete legal health record.[facility]
--- OUTSIDE RECORDS SUMMARY | 2025-07-11 15:06 | XMS_ITS | Data Portability ---
Author Organization [place] - [facility], Allergy Address [address] [address] Care Team Providers Care Surgical Scrub Technologist Name Role Phone SALVADOR ARRINGTON Primary Care Provider Assessment Encounter Date Assessment Date Assessment LastModified by Organization Details LastModified Time 03/20/2025 03/20/2025 59yo male presents for cerumen removal. Cerumen impactions removed bilaterally, which patient tolerated well. TMs are normal to inspection. Audiometric testing offered, and patient prefers to observe and return in 6 months. Recommend a few drops of mineral oil as needed to soften wax. He will follow up in 6 months for cerumen debridement with hearing test after. He will restart intranasal flonase for nasal congestion. [email or web address] Not available 03/20/2025 12:09:44 Plan of Treatment Reminders Order Date Submit Date Provider Last Modified By Organization Details Last Modified Time Details Appointments Establish ed 15 2025 11:30A M WILLA VALDEZ PA-C Not available Not available Not available Lab None recorded. Referral None recorded. Procedures None recorded. Surgeries None recorded. Imaging None recorded. Medication Orders None recorded. Patient TargetsNo targets recorded. Patient InstructionsNo instructions recorded. Reason for Referral None Reported. Problems Name Problem SNOMED Code Status Onset Date Resolution Date Notes Provider Name and Address Organization Details Recorded Time Impacted cerumen of bilateral ears 62710113432 31610 Active 2020 Impacted cerumen, bilateral ; Note: Date Diagnosed : 05/11/2021 12:55 PM (H61.23) Not Available [facility] 4 02:17:14 Atypical facial pain 95411945 Active 2021 Atypical facial pain; Note: Date Diagnosed : 04/14/2022 12:02 PM (G50.1) Not Available [facility] 4 02:17:05 Bilateral tinnitus 69191750463 02 Active 2022 Tinnitus, bilateral ; Note: Date Diagnosed : 01/19/2023 5:21 PM (H93.13) Not Available [facility] 4 02:17:17 Chronic rhinitis 30944460 Active 2024 WILLA VALDEZ PA-C [address] [place] [address],[place] [address], [place], [address] , [facility] 5 12:09:49 Problem Notes None recorded. Procedures Surgical History Date Name Laterality Status Provider Name and Address Organization Details Recorded Time 5 Cerumen removal without microscope bilat completed WILLA VALDEZ PA-C [address] [place] [address],[place] [address], [place], [address], [facility] 03/20/2025 12:00:47 Imaging Results None recorded. Procedure Notes None recorded. Medical Equipment None Reported. Allergies Allergen ID Allergen Name Allergen Category Reaction Reaction Severity Criticality Documentation Date Start Date Code Code System Note Provider Name and Address Organization Details Recorded Time 75243 tramadol Not available other Not available Not available 01/02/2024 93941 RxNorm React ion: Unkno wn; Not Available [facility] 4 00:50:01 Medications Name Sig Start Date Stop Date Status Note LastModified by Organization Details LastModified Time clonazepam 1 mg tablet active Medication ID: [id number] Bran d Name: clonazepam Send Method: E-Prescribe d Subs Allowed: subs OK Medicati onGenericNa me: clonazepam Not Available Not Available Not Available amlodipine 5 mg tablet active Medication ID: [id number] Bran d Name: amlodipine Send Method: E-Prescribe d Subs Allowed: subs OK Medicati onGenericNa me: amlodipine Not Available Not Available Not Available levothyroxine 25 mcg tablet active Medication ID: [id number] Bran d Name: levothyroxi ne Send Method: E-Prescribe d Subs Allowed: subs OK Medicati onGenericNa me: levothyroxi ne Not Available Not Available Not Available nortriptyline 75 mg capsule active Medication ID: [id number] Bran d Name: nortriptyli ne Send Method: E-Prescribe d Subs Allowed: subs OK Medicati onGenericNa me: nortriptyli ne Not Available Not Available Not Available lithium carbonate 300 mg tablet active Medication ID: [id number] Bran d Name: lithium carbonate S end Method: E-Prescribe d Subs Allowed: subs OK Medicati onGenericNa me: lithium carbonate Not Available Not Available Not Available nortriptyline 50 mg capsule active Medication ID: [id number] Bran d Name: nortriptyli ne Send Method: E-Prescribe d Subs Allowed: subs OK Medicati onGenericNa me: nortriptyli ne Not Available Not Available Not Available losartan 100 mg-hydrochlor othiazide 12.5 mg tablet active Medication ID: [id number] Bran d Name: losartan-hy drochloroth iazide Send Method: E-Prescribe d Subs Allowed: subs OK Medicati onGenericNa me: losartan-hy drochloroth iazide Not Available Not Available Not Available Vitals Date Recorded Body weight Body mass index (BMI) Body height Provider Name and Address Organization Details Last Updated DateTime 03/20/2025 76832.32 g 33.5 kg/m2 172.72 cm Cheri So [place] - [facility] 03/20/2025 11:33:42 Social History None recorded. Functional Status None recorded. Mental Status None recorded. Family History Nothing Reported. Medical History Condition Response Anxiety Y Depression Y Past Encounters Encounter ID Performer Location Encounter Start Date Encounter Closed Date Diagnosis/Indication Diagnosis SNOMED-CT Code Diagnosis ICD10 Code Diagnosis IMO Codes Diagnosis Note [id number] WILLA VALDEZ PA-C [facility] [address] [address] 03/20/2025 11:21:20 03/20/2025 11:52:57 Chronic rhinitis 93070578 J31.0 2545 Impacted c erumen of bilateral ears 3602596866 182245 H61.23 Bilateral tinnitus 33356 81857 102 H93.13 Today we discussed the pathophysi ology of tinnitus and the absence of consistent ly successful pharmacolo gic treatments . Recommend masking strategies to decrease awareness of the tinnitus, including using a white noise machine, [employer] tinnitus joshua, music, or television . We discussed how exposure to loud noise can worsen tinnitus so I recommende d hearing protection . We also discussed other ways to potentiall y help reduce awareness of tinnitus including avoidance of caffeine, salty meals and NSAIDs. Health Concerns Section Related Observation LastModified by Organization Detai ls LastModified Time None Recorded Concern Status LastModified by Organization Details LastModified Time None Recorded Advance Directives Directive None Recorded Payers Insurance Date Sequence Insurance Name Policy Number Policy Richards Covered Member ID Richards Member ID Guarantor Name 03/20/2025 1 [facility] BLUE (MEDICARE REPLACEMENT PPO) [id number] Saqib Colby [id number] Saqib Sequeira 03/21/2025 1 [employer] [employer] Saqib Sequeira [id number] Saqib Sequeira Notes Date Note Type Note Provider Name and Address Organization Details Recorded Time 03/20/2025 text/html ROS as noted in the HPI 59 year old male presents for evaluation of the ears. Reports no change in hearing. Denies ear pain, drainage, change in tinnitus, or Qtip use. He suspects worsening hearing in both ears. TYRA QUICK MD [address] [place] [address], [address], [facility] - [facility] 03/20/2025 19:53:12
== END 2025-07-11 15:29 | disposition home or self-care (01) ==
LOC: HO.HPS 14:53
PROVIDERS: PCP Internal Medicine; Visit Provider Hospitalist
DX: G47.33 Obstructive sleep apnea (adult) (pediatric) (principal); Z99.89 Dependence on other enabling machines and devices; F51.01 Primary insomnia
CPT/HCPCS: 99214

== ENCOUNTER → 2025-07-11 14:52 | Outpatient (BNVA) | payer BC, SELFPAY | PROVIDERS: PCP Internal Medicine; Visit Provider Hospitalist | DX: Z23 Encounter for immunization (principal) | CPT/HCPCS: 90471; 90656 ==